=== PATIENT | female | born 1980 | race American Indian/Alaskan Native ===

== ENCOUNTER 2016-10-27 16:02 | Outpatient (CLI) | payer MEDICAID ==
--- NOTE | 2016-10-29 10:29 | Magnetic Resonance Report ---
MRI LUMBAR SPINE WITHOUT CONTRAST HISTORY: Low back pain. TECHNIQUE: axial T1, T2. sagittal T1,T2, STIR. COMPARISON: none. FINDINGS: The conus terminates at T12. No signal abnormality or mass. The cauda equina is within normal limits. No central canal stenosis. Normal height and alignment of the lumbar vertebra. The facet joints are in appropriate relationship. Normal bone marrow signal. No acute fracture or suspicious bone lesion. The paraspinal soft tissues are unremarkable. Mild disc narrowing and desiccation and facet arthropathy are noted at L4-5 and L5-S1. L1-2: No abnormality. L2-3: No abnormality. L3-4: No abnormality. L4-5: A focal midline annular tear and small disc protrusion are identified which efface the anterior thecal sac. No mass effect on nerve roots. No large herniation. Bilateral neural foraminal narrowing is estimated at 25%. Mild facet arthropathy and hypertrophy of the ligamentum flavum are noted.. L5-S1: A broad based midline to left paracentral annular tear is identified with small disc protrusion which effaces the anterior thecal sac. No mass effect on nerve roots or significant neural foraminal narrowing. Mild facet arthropathy is noted. IMPRESSION: Mild degenerative disc disease and facet arthropathy at L4-5 and L5-S1. Midline and midline to left paracentral annular tears with associated small disc protrusions are identified at these levels. Please see above. No large herniation, high-grade central canal stenosis or high-grade neural foraminal narrowing is appreciated.
== END 2016-10-27 16:03 | disposition home or self-care (01) ==
LOC: MRI 16:02
DX: M54.17 Radiculopathy, lumbosacral region (principal); M47.27 Other spondylosis with radiculopathy, lumbosacral region; M51.36 Other intervertebral disc degeneration, lumbar region; M51.17 Intervertebral disc disorders with radiculopathy, lumbosacral region; M12.88 Other specific arthropathies, not elsewhere classified, other specified site; M24.28 Disorder of ligament, vertebrae
CPT/HCPCS: 72148

== ENCOUNTER 2019-01-26 04:18 | Emergency (ER) | payer MEDICAID ==
[2019-01-26] MEDS ORDERED: NACL 0.9% 1000 ML 1,000 ML IV ONE ×2 (04:29→07:18)
[2019-01-26 05:43] LABS: Alanine Aminotransferase 8 units/L (7-56); Albumin 4.1 g/dL (3.9-5); BUN/Creatinine Ratio 10; Blood Urea Nitrogen 9 mg/dL (7-17); Calcium 8.8 mg/dL (8.4-10.2); Hemolysis Index 7
[2019-01-26 06:01] LABS: Basophils # (Auto) 0.1 K/mm3 (0.0-0.1); Basophils % (Auto) 0.5 % (0.0-1.8); Eosinophils % (Auto) 0.4 % (0.0-4.3); Hematocrit 42.8 % (30.3-42.9); Hemoglobin 14.3 gm/dl (10.1-14.3); Lymphocytes # (Auto) 4.1 K/mm3 (1.2-5.4); Lymphocytes % (Auto) 37.4 % (13.4-35.0); Mean Corpuscular HGB Conc 33 % (30-34); Mean Corpuscular Volume 96 fl (79-97); Monocytes # (Auto) 0.7 K/mm3 (0.0-0.8); Monocytes % (Auto) 6.7 % (0.0-7.3); Platelet Count 296 K/mm3 (140-440); Red Blood Count 4.48 M/mm3 (3.65-5.03); Red Cell Distribution Width 14.1 % (13.2-15.2)
[2019-01-26] MEDS ORDERED: MORPHINE IV ONE (07:18)
[2019-01-26] MEDS ORDERED: ZOFRAN IV ONE (07:18)
--- NOTE | 2019-01-26 07:43 | Emergency Department Report ---
ED Abdominal Pain HPI - General Chief Complaint: Abdominal Pain Stated Complaint: RT SIDE BREAST ABD PAIN Time Seen by Provider: 01/26/19 07:18 Source: patient Mode of arrival: Ambulatory Limitations: No Limitations - History of Present Illness Initial Comments: This is a 38-year-old female nontoxic, well nourished in appearance, no acute signs of distress presents to the ED with c/o of intermittent nausea and vomiting and right upper abdominal 1 month. Patient stated that pain is under right breast with radiation to right flank area. Patient describes vomiting as food content and yellow gastric acid. Patient describes abdominal pain as cramp ing and aching with level of 3/10. Patient denies chest pain, short of breath, fever, chills, headache, stiff neck, numbness or tingling. Patient denies any diarrhea or constipation. Patient denies any recent travels. MD Complaint: abdominal pain -: month(s) (1) Location: RUQ Radiation: R flank Migration to: no migration Severity: mild Severity scale (0 -10): 3 Quality: cramping, aching Consistency: intermittent Improves With: nothing Worsens With: nothing Associated Symptoms: nausea, vomiting. denies: diarrhea, fever, chills, constipation, dysuria, hematemesis, hematochezia, melena, hematuria, anorexia, syncope - Related Data Home Medications Medication Instructions Recorded Confirmed Last Taken Dicyclomine [Bentyl] 10 mg PO PRN PRN 04/07/16 04/10/16 04/08/16 08:00 HYDROcodone/ACETAMINOPHEN [[place] 09/04/16 Unknown 7.5-325 mg TAB] Previous Rx's Medication Instructions Recorded Last Taken Type Promethazine /Codeine 5 ml PO Q6H PRN #50 ml 12/04/14 04/09/16 12:00 Rx [Phenergan/Codeine 6.25-10 mg/5 ml] Meloxicam [Mobic] 7.5 mg PO QDAY #7 tablet 09/04/16 Unknown Rx Acetaminophen/Codeine [Tylenol 1 tab PO Q6H PRN #12 tab 01/26/19 Unknown Rx /Codeine # 3 tab] Nitrofurantoin [place]/M-Cryst 100 mg PO Q12HR #14 capsule 01/26/19 Unknown Rx [Macrobid CAP] Ondansetron [Zofran Odt] 4 mg PO Q8HR PRN #20 tab.rapdis 01/26/19 Unknown Rx Allergies Allergy/AdvReac Type Severity Reaction Status Date / Time sulfamethoxazole Allergy Severe Hives Verified 04/03/16 08:54 [From Bactrim] trimethoprim [From Bactrim] Allergy Severe Hives Verified 04/03/16 08:54 iodine Allergy Hives Verified 09/04/16 09:31 tramadol AdvReac Severe Headache Verified 04/07/16 09:57 aspirin AdvReac Unknown Verified 01/26/19 04:24 contrast Allergy Severe Rash Uncoded 04/03/16 08:54 CLAMary CHOWDER AdvReac Severe Swelling Uncoded 04/03/16 08:54 ED Review of Systems ROS: Stated complaint: RT SIDE BREAST ABD PAIN Other details as noted in HPI Constitutional: denies: chills, fever Eyes: denies: eye pain, eye discharge, vision change ENT: denies: ear pain, throat pain Respiratory: denies: cough, shortness of breath, wheezing Cardiovascular: denies: chest pain, palpitations Endocrine: no symptoms reported Gastrointestinal: abdominal pain, nausea, vomiting. denies: diarrhea Genitourinary: denies: urgency, dysuria, discharge Musculoskeletal: denies: back pain, joint swelling, arthralgia Skin: denies: rash, lesions Neurological: denies: headache, weakness, paresthesias Psychiatric: denies: anxiety, depression Hematological/Lymphatic: denies: easy bleeding, easy bruising ED Past Medical Hx - Past Medical History Previous Medical History?: Yes Hx Hypertension: Yes (notpresently on meds) Hx Diabetes: Yes (gestational) Hx GERD: Yes Hx Psychiatric Treatment: Yes (depression, ANXIETY, SI/SA) Additional medical history: Peripheral neuropathy. hx suicidal attempts/OD. pt states hx MS-no PMD or neurologist. - Surgical History Additional Surgical History: tonsillectomy. partial hysterectomy. x 3 - Social History Smoking Status: Current Every Day Smoker Substance Use Type: None - Medications Home Medications: Home Medications Medication Instructions Recorded Confirmed Last Taken Type Promethazine /Codeine 5 ml PO Q6H PRN #50 ml 12/04/14 04/10/16 04/09/16 12:00 Rx [Phenergan/Codeine 6.25-10 mg/5 ml] Dicyclomine [Bentyl] 10 mg PO PRN PRN 04/07/16 04/10/16 04/08/16 08:00 History HYDROcodone/ACETAMINOPHEN [[place] 09/04/16 Unknown History 7.5-325 mg TAB] Meloxicam [Mobic] 7.5 mg PO QDAY #7 tablet 09/04/16 Unknown Rx Acetaminophen/Codeine [Tylenol 1 tab PO Q6H PRN #12 tab 01/26/19 Unknown Rx /Codeine # 3 tab] Nitrofurantoin [place]/M-Cryst 100 mg PO Q12HR #14 capsule 01/26/19 Unknown Rx [Macrobid CAP] Ondansetron [Zofran Odt] 4 mg PO Q8HR PRN #20 tab.rapdis 01/26/19 Unknown Rx ED Physical Exam - General Limitations: No Limitations General appearance: alert, in no apparent distress - Head Head exam: Present: atraumatic, normocephalic - Eye Eye exam: Present: normal appearance - Neck Neck exam: Present: normal inspection, full ROM. Absent: tenderness, meningismus, lymphadenopathy - Respiratory Respiratory exam: Present: normal lung sounds bilaterally. Absent: respiratory distress, wheezes, rales, rhonchi, stridor, chest wall tenderness, accessory muscle use, decreased breath sounds, prolonged expiratory - Cardiovascular Cardiovascular Exam: Present: regular rate, normal rhythm, normal heart sounds. Absent: irregular rhythm, systolic murmur, diastolic murmur, rubs, gallop - GI/Abdominal GI/Abdominal exam: Present: soft, tenderness (RUQ), normal bowel sounds. Absent: distended, guarding, rebound, rigid, diminished bowel sounds - Expanded GI/Abdominal Exam Expanded GI/Abdominal exam: Absent: psoas sign, Danielle's sign, Rovsing's sign, tenderness at Mcburney's Point, ascites - Extremities Exam Extremities exam: Present: normal inspection, full ROM, normal capillary refill - Back Exam Back exam: Present: normal inspection, full ROM. Absent: tenderness, CVA tenderness (R), CVA tenderness (L), muscle spasm, paraspinal tenderness, vertebral tenderness, rash noted - Neurological Exam Neurological exam: Present: alert, oriented X3, normal gait - Psychiatric Psychiatric exam: Present: normal affect, normal mood - Skin Skin exam: Present: warm, dry, intact, normal color. Absent: rash ED Course Vital Signs 01/26/19 01/26/19 01/26/19 04:27 08:25 08:55 Temperature 98.6 F Pulse Rate 97 H Respiratory 18 18 18 Rate Blood Pressure 154/108 O2 Sat by Pulse 100 Oximetry - Reevaluation(s) Reevaluation #1: 01/26/19 07:45 Patient is speaking in full sentences with no signs of distress noted. ED Medical Decision Making - Lab Data Result diagrams: 01/26/19 04:32 01/26/19 04:32 - Medical Decision Making This is a 35-year-old female that presents with abdominal pain and UTI. Patient is stable and was examined by me. There is slight abdominal tenderness. Negative signs of symptoms of appendicitis. Labs obtained. UA obtained. CT of abdomen obtained and dictated by the radiologist. Patient is notified of the report with no questions noted by the patient. Vital signs are stable prior to discharge. Patient received medical treatment in the ED which patient stated symptoms has resolved and subsided. Was instructed note to operate any machinery due to possible drowsiness and stated someone will drive the patient home. A by mouth challenge has been obtained and patient tolerated well with no nausea vomiting. Patient was notified of strict precatuions of appendictis symptoms and to return to the ED if symptoms occurs as soon as possible. Patient was also instructed to Follow-up with a primary care doctor in 3-5 days or if symptoms worsen and continue return to emergency room as soon as possible. At time of discharge, the patient does not seem toxic or ill in appearance. No acute signs of distress noted. Patient agrees to discharge treatment plan of care. No further questions noted by the patient. Critical care attestation.: If time is entered above; I have spent that time in minutes in the direct care of this critically ill patient, excluding procedure time. ED Disposition Clinical Impression: UTI (urinary tract infection) Qualifiers: Urinary tract infection type: acute cystitis Hematuria presence: without hematuria Qualified Code(s): N30.00 - Acute cystitis without hematuria Abdominal pain Qualifiers: Abdominal location: right upper quadrant Qualified Code(s): R10.11 - Right upper quadrant pain Disposition: -01 TO HOME OR SELFCARE Is pt being admited?: No Does the pt Need Aspirin: No Condition: Stable Instructions: Abdominal Pain (ED), Urinary Tract Infection in Women (ED), Acetaminophen/Codeine (By mouth) Additional Instructions: Follow-up with a primary care doctor in 3-5 days or if symptoms worsen and continue return to emergency room as soon as possible. Prescriptions: Nitrofurantoin [place]/M-Cryst [Macrobid CAP] 100 mg PO Q12HR #14 capsule Acetaminophen/Codeine [Tylenol /Codeine # 3 tab] 1 tab PO Q6H PRN #12 tab PRN Reason: Pain , Severe (7-10) Ondansetron [Zofran Odt] 4 mg PO Q8HR PRN #20 tab.rapdis PRN Reason: Nausea Referrals: TANA ALAN MD [Primary Care Provider] - 3-5 Days PRIMARY CARE, [Referring] - 3-5 Days SHERITA ZHENG MD [Staff Physician] - 3-5 Days [facility] [Outside] - 3-5 Days [facility] [Outside] - 3-5 Days Forms: Work/School Release Form(ED)
[2019-01-26 08:12] LABS: Bacteria,Urine 4+ /HPF (Negative); Bilirubin,Urine NEG (Negative); Blood,Urine NEG (Negative); Color,Urine Amber (Yellow); Mucus,Urine 3+ /HPF; Protein,Urine <15 mg/dL mg/dL (Negative)
[2019-01-26 08:55] LABS: HCG Qualitative,Urine Negative (Negative)
--- NOTE | 2019-01-26 09:54 | Cat Scan Report ---
PROCEDURE: CT ABDOMEN PELVIS W CON TECHNIQUE: Computerized axial tomography of the abdomen and pelvis was performed after the IV injecti on of iodinated nonionic contrast. Coronal and sagittal reconstructed imaging provided. CT DOSE LENGTH PRODUCT: 3358.2 mGy-cm. HISTORY: abd pain COMPARISONS: None currently available. FINDINGS: Abdomen: Lung bases and images of the heart are grossly unremarkable. Liver, gallbladder, stomach, spleen, pancreas, adrenals, and kidneys are unremarkable. No aneurysm. No dissection. No significant atherosclerotic disease. IVC is unremarkable. There is no periaortic or retroperitoneal adenopathy or mass. Qnkr-wt-ywolqacl stool. No wall thickening or inflammatory changes. Terminal ileum is unremarkable. Appendix is normal. Small bowel loops are unremarkable. No obstructive pattern. No air-fluid levels. No free air. No free fluid. Mesentery is unremarkable. Pelvis: Uterus: Limited images are grossly unremarkable. Bilateral tubal ligation clips. Bladder: Unremarkable. There is no pelvic mass or adenopathy. Inguinal regions are unremarkable. Bones: No suspicious osseous lesions on this limited examination of the skeleton. Metastatic disease better evaluated with bone scan. IMPRESSION: * No acute findings. This document is electronically signed by Louis Vazquez MD., January 26 2019 09:52:47 AM ET
[2019-01-26 10:10] VITALS: BP 123/76
== END 2019-01-26 10:10 | disposition home or self-care (01) ==
LOC: ED 04:18
DX: N30.00 Acute cystitis without hematuria (principal); I10 Essential (primary) hypertension; K21.9 Gastro-esophageal reflux disease without esophagitis; E11.40 Type 2 diabetes mellitus with diabetic neuropathy, unspecified; F17.200 Nicotine dependence, unspecified, uncomplicated; Z79.4 Long term (current) use of insulin; Z90.710 Acquired absence of both cervix and uterus; Z88.2 Allergy status to sulfonamides; Z88.8 Allergy status to other drugs, medicaments and biological substances; Z88.6 Allergy status to analgesic agent; Z91.041 Radiographic dye allergy status
CPT/HCPCS: 36415; 74177; 80053; 81001; 81025; 83690; 85025; 96361; 96374; 96375; 99284; J2270; J2405; J7030; Q9967

== ENCOUNTER 2019-02-10 11:04 | Emergency (ER) | payer MEDICAID ==
[2019-02-10 11:59] LABS: Basophils # (Auto) 0.1 K/mm3 (0.0-0.1); Basophils % (Auto) 0.7 % (0.0-1.8); Eosinophils # (Auto) 0.1 K/mm3 (0.0-0.4); Eosinophils % (Auto) 0.6 % (0.0-4.3); Hematocrit 39.8 % (30.3-42.9); Hemoglobin 13.2 gm/dl (10.1-14.3); Lymphocytes # (Auto) 2.2 K/mm3 (1.2-5.4); Lymphocytes % (Auto) 20.2 % (13.4-35.0); Mean Corpuscular HGB Conc 33 % (30-34); Mean Corpuscular Volume 96 fl (79-97); Monocytes % (Auto) 8.9 % (0.0-7.3); Platelet Count 204 K/mm3 (140-440); Red Blood Count 4.15 M/mm3 (3.65-5.03); Red Cell Distribution Width 14.4 % (13.2-15.2)
[2019-02-10] MEDS ORDERED: FIORICET PO ONE (12:01)
[2019-02-10] MEDS ORDERED: REGLAN IV ONE (12:01)
[2019-02-10] MEDS ORDERED: NACL 0.9% 1000 ML 1,000 ML IV ONE (12:01)
[2019-02-10] MEDS ORDERED: ANTIVERT PO ONE (12:02)
[2019-02-10] MEDS ORDERED: BENADRYL IV ONE (12:02)
[2019-02-10 12:19] LABS: BUN/Creatinine Ratio 10; Blood Urea Nitrogen 6 mg/dL (7-17); Calcium 8.8 mg/dL (8.4-10.2); Hemolysis Index 8
--- NOTE | 2019-02-10 12:57 | Emergency Department Report ---
ED General Adult HPI - General Chief complaint: Weakness Stated complaint: WEAKNESS Time Seen by Provider: 02/10/19 11:43 Source: patient, EMS Mode of arrival: Stretcher Limitations: No Limitations - History of Present Illness Initial comments: Patient presents to the emergency department with a chief complaint of generalized weakness and dizziness for the last 2 weeks. Patient states that when she moves her head she becomes dizzy. Patient denies any chest pain or shortness of breath. Patient also complains of a diffuse headache for the last 2 weeks that she describes as throbbing in nature and not the worse headache of her life -: Gradual Severity scale (0 -10): 4 Consistency: constant Improves with: none Worsens with: none Associated Symptoms: headaches Treatments Prior to Arrival: none - Related Data Home Medications Medication Instructions Recorded Confirmed Last Taken Dicyclomine [Bentyl] 10 mg PO PRN PRN 04/07/16 04/10/16 04/08/16 08:00 HYDROcodone/ACETAMINOPHEN [[place] 09/04/16 Unknown 7.5-325 mg TAB] Previous Rx's Medication Instructions Recorded Last Taken Type Promethazine /Codeine 5 ml PO Q6H PRN #50 ml 12/04/14 04/09/16 12:00 Rx [Phenergan/Codeine 6.25-10 mg/5 ml] Meloxicam [Mobic] 7.5 mg PO QDAY #7 tablet 09/04/16 Unknown Rx Acetaminophen/Codeine [Tylenol 1 tab PO Q6H PRN #12 tab 01/26/19 Unknown Rx /Codeine # 3 tab] Nitrofurantoin [place]/M-Cryst 100 mg PO Q12HR #14 capsule 01/26/19 Unknown Rx [Macrobid CAP] Ondansetron [Zofran Odt] 4 mg PO Q8HR PRN #20 tab.rapdis 01/26/19 Unknown Rx Butalb/Acetamin/Caff 50-325-40 1 tab PO Q6HR PRN #24 tab 02/10/19 Unknown Rx [Fioricet] Meclizine [Antivert] 25 mg PO TID PRN #30 tablet 02/10/19 Unknown Rx Allergies Allergy/AdvReac Type Severity Reaction Status Date / Time sulfamethoxazole Allergy Severe Hives Verified 04/03/16 08:54 [From Bactrim] trimethoprim [From Bactrim] Allergy Severe Hives Verified 04/03/16 08:54 iodine Allergy Hives Verified 09/04/16 09:31 tramadol AdvReac Severe Headache Verified 04/07/16 09:57 aspirin AdvReac Unknown Verified 01/26/19 04:24 contrast Allergy Severe Rash Uncoded 04/03/16 08:54 MKIAEL CHATMAN AdvReac Severe Swelling Uncoded 04/03/16 08:54 ED Review of Systems ROS: Stated complaint: WEAKNESS Other details as noted in HPI Comment: All other systems reviewed and negative Constitutional: denies: chills, fever Eyes: denies: eye pain, eye discharge, vision change ENT: denies: ear pain, throat pain Respiratory: denies: cough, shortness of breath, wheezing Cardiovascular: denies: chest pain, palpitations Endocrine: no symptoms reported Gastrointestinal: denies: abdominal pain, nausea, diarrhea Genitourinary: denies: urgency, dysuria, discharge Musculoskeletal: denies: back pain, joint swelling, arthralgia Skin: denies: rash, lesions Neurological: weakness, vertigo. denies: headache, paresthesias Psychiatric: denies: anxiety, depression Hematological/Lymphatic: denies: easy bleeding, easy bruising ED Past Medical Hx - Past Medical History Previous Medical History?: Yes Hx Hypertension: Yes (notpresently on meds) Hx Diabetes: Yes (gestational) Hx GERD: Yes Hx Psychiatric Treatment: Yes (depression, ANXIETY, SI/SA) Additional medical history: Peripheral neuropathy. hx suicidal attempts/OD. pt states hx MS-no PMD or neurologist. - Surgical History Additional Surgical History: tonsillectomy. partial hysterectomy. x 3 - Social History Smoking Status: Current Every Day Smoker Substance Use Type: None - Medications Home Medications: Home Medications Medication Instructions Recorded Confirmed Last Taken Type Promethazine /Codeine 5 ml PO Q6H PRN #50 ml 12/04/14 04/10/16 04/09/16 12:00 Rx [Phenergan/Codeine 6.25-10 mg/5 ml] Dicyclomine [Bentyl] 10 mg PO PRN PRN 04/07/16 04/10/16 04/08/16 08:00 History HYDROcodone/ACETAMINOPHEN [[place] 09/04/16 Unknown History 7.5-325 mg TAB] Meloxicam [Mobic] 7.5 mg PO QDAY #7 tablet 09/04/16 Unknown Rx Acetaminophen/Codeine [Tylenol 1 tab PO Q6H PRN #12 tab 01/26/19 Unknown Rx /Codeine # 3 tab] Nitrofurantoin [place]/M-Cryst 100 mg PO Q12HR #14 capsule 01/26/19 Unknown Rx [Macrobid CAP] Ondansetron [Zofran Odt] 4 mg PO Q8HR PRN #20 tab.rapdis 01/26/19 Unknown Rx Butalb/Acetamin/Caff 50-325-40 1 tab PO Q6HR PRN #24 tab 02/10/19 Unknown Rx [Fioricet] Meclizine [Antivert] 25 mg PO TID PRN #30 tablet 02/10/19 Unknown Rx ED Physical Exam - General Limitations: No Limitations General appearance: alert, in no apparent distress - Head Head exam: Present: atraumatic, normocephalic - Eye Eye exam: Present: normal appearance, PERRL, EOMI - ENT ENT exam: Present: mucous membranes dry - Neck Neck exam: Present: normal inspection - Respiratory Respiratory exam: Present: normal lung sounds bilaterally. Absent: respiratory distress, wheezes, rales - Cardiovascular Cardiovascular Exam: Present: regular rate, normal rhythm. Absent: systolic murmur, diastolic murmur, rubs, gallop - GI/Abdominal GI/Abdominal exam: Present: soft, normal bowel sounds. Absent: distended, tenderness - Extremities Exam Extremities exam: Present: normal inspection - Back Exam Back exam: Present: normal inspection - Neurological Exam Neurological exam: Present: alert, oriented X3, CN II-XII intact, other (able to re-create symptoms are rapid eye and head movement). Absent: motor sensory deficit - Psychiatric Psychiatric exam: Present: normal affect, normal mood - Skin Skin exam: Present: warm, dry, intact, normal color. Absent: rash ED Course Vital Signs 02/10/19 02/10/19 11:12 13:20 Temperature 98.3 F Pulse Rate 113 H 98 H Respiratory 18 16 Rate Blood Pressure 136/90 Blood Pressure 117/63 [Left] O2 Sat by Pulse 98 98 Oximetry ED Medical Decision Making - Lab Data Result diagrams: 02/10/19 11:44 02/10/19 11:44 Lab Results 02/10/19 02/10/19 02/10/19 Range/Units 11:44 11:44 11:44 WBC 10.7 (4.5-11.0) K/mm3 RBC 4.15 (3.65-5.03) M/mm3 Hgb 13.2 (10.1-14.3) gm/dl Hct 39.8 (30.3-42.9) % MCV 96 (79-97) fl MCH 32 (28-32) pg MCHC 33 (30-34) % RDW 14.4 (13.2-15.2) % Plt Count 204 (140-440) K/mm3 Lymph % (Auto) 20.2 (13.4-35.0) % [place] % (Auto) 8.9 H (0.0-7.3) % Eos % (Auto) 0.6 (0.0-4.3) % Baso % (Auto) 0.7 (0.0-1.8) % Lymph # 2.2 (1.2-5.4) K/mm3 [place] # 1.0 H (0.0-0.8) K/mm3 Eos # 0.1 (0.0-0.4) K/mm3 Baso # 0.1 (0.0-0.1) K/mm3 Seg Neutrophils % 69.6 (40.0-70.0) % Seg Neutrophils # 7.4 (1.8-7.7) K/mm3 Sodium 139 (137-145) mmol/L Potassium 3.5 L (3.6-5.0) mmol/L Chloride 103.5 (98-107) mmol/L Carbon Dioxide 24 (22-30) mmol/L Anion Gap 15 mmol/L BUN 6 L (7-17) mg/dL Creatinine 0.6 L (0.7-1.2) mg/dL Estimated GFR > 60 ml/min BUN/Creatinine Ratio 10 % Glucose 123 H (65-100) mg/dL Calcium 8.8 (8.4-10.2) mg/dL Total Bilirubin (0.1-1.2) mg/dL Direct Bilirubin (0-0.2) mg/dL Indirect Bilirubin mg/dL AST (5-40) units/L ALT (7-56) units/L Alkaline Phosphatase (35-129) units/L Total Protein (6.3-8.2) g/dL Albumin (3.9-5) g/dL Albumin/Globulin Ratio % HCG, Qual Negative (Negative) Urine Color (Yellow) Urine Turbidity (Clear) Urine pH (5.0-7.0) Ur Specific [place] (1.003-1.030) Urine Protein (Negative) mg/dL Urine Glucose (UA) (Negative) mg/dL Urine Ketones (Negative) mg/dL Urine Blood (Negative) Urine Nitrite (Negative) Urine Bilirubin (Negative) Urine Urobilinogen (<2.0) mg/dL Ur Leukocyte Esterase (Negative) Urine WBC (Auto) (0.0-6.0) /HPF Urine RBC (Auto) (0.0-6.0) /HPF U Epithel Cells (Auto) (0-13.0) /HPF Urine Bacteria (Auto) (Negative) /HPF 02/10/19 02/10/19 Range/Units 11:44 12:17 WBC (4.5-11.0) K/mm3 RBC (3.65-5.03) M/mm3 Hgb (10.1-14.3) gm/dl Hct (30.3-42.9) % MCV (79-97) fl MCH (28-32) pg MCHC (30-34) % RDW (13.2-15.2) % Plt Count (140-440) K/mm3 Lymph % (Auto) (13.4-35.0) % [place] % (Auto) (0.0-7.3) % Eos % (Auto) (0.0-4.3) % Baso % (Auto) (0.0-1.8) % Lymph # (1.2-5.4) K/mm3 [place] # (0.0-0.8) K/mm3 Eos # (0.0-0.4) K/mm3 Baso # (0.0-0.1) K/mm3 Seg Neutrophils % (40.0-70.0) % Seg Neutrophils # (1.8-7.7) K/mm3 Sodium (137-145) mmol/L Potassium (3.6-5.0) mmol/L Chloride (98-107) mmol/L Carbon Dioxide (22-30) mmol/L Anion Gap mmol/L BUN (7-17) mg/dL Creatinine (0.7-1.2) mg/dL Estimated GFR ml/min BUN/Creatinine Ratio % Glucose (65-100) mg/dL Calcium (8.4-10.2) mg/dL Total Bilirubin 0.20 (0.1-1.2) mg/dL Direct Bilirubin < 0.2 (0-0.2) mg/dL Indirect Bilirubin 0.0 mg/dL AST 10 (5-40) units/L ALT 12 (7-56) units/L Alkaline Phosphatase 80 (35-129) units/L Total Protein 6.6 (6.3-8.2) g/dL Albumin 3.7 L (3.9-5) g/dL Albumin/Globulin Ratio 1.3 % HCG, Qual (Negative) Urine Color Yellow (Yellow) Urine Turbidity Cloudy (Clear) Urine pH 7.0 (5.0-7.0) Ur Specific [place] 1.004 (1.003-1.030) Urine Protein <15 mg/dl (Negative) mg/dL Urine Glucose (UA) Neg (Negative) mg/dL Urine Ketones Neg (Negative) mg/dL Urine Blood Neg (Negative) Urine Nitrite Neg (Negative) Urine Bilirubin Neg (Negative) Urine Urobilinogen < 2.0 (<2.0) mg/dL Ur Leukocyte Esterase Tr (Negative) Urine WBC (Auto) 4.0 (0.0-6.0) /HPF Urine RBC (Auto) 2.0 (0.0-6.0) /HPF U Epithel Cells (Auto) 41.0 H (0-13.0) /HPF Urine Bacteria (Auto) 1+ (Negative) /HPF - Radiology Data Radiology results: report reviewed - Medical Decision Making Patient had improvement of her symptoms with medications Critical care attestation.: If time is entered above; I have spent that time in minutes in the direct care of this critically ill patient, excluding procedure time. ED Disposition Clinical Impression: Vertigo, Headache Disposition: - TO HOME OR SELFCARE Is pt being admited?: No Does the pt Need Aspirin: No Condition: Stable Instructions: Vertigo (ED), Acute Headache (ED) Additional Instructions: return if worse Referrals: TANA ALAN MD [Primary Care Provider] - 3-5 Days [facility] [Provider Group] - 3-5 Days [facility] [Provider Group] - 3-5 Days ENOC RODRIGUEZ MD [Staff Physician] - 3-5 Days Time of Disposition: 15:21
[2019-02-10 13:10] LABS: Bacteria,Urine 1+ /HPF (Negative); Bilirubin,Urine NEG (Negative); Blood,Urine NEG (Negative); Color,Urine Yellow (Yellow); Protein,Urine <15 mg/dL mg/dL (Negative); Urobilinogen,Urine < 2.0 mg/dL (<2.0)
[2019-02-10 14:00] LABS: Alanine Aminotransferase 12 units/L (7-56); Albumin 3.7 g/dL (3.9-5)
[2019-02-10 14:01] LABS: Bilirubin,Direct < 0.2 mg/dL (0-0.2)
--- NOTE | 2019-02-10 14:47 | Cat Scan Report ---
CT HEAD WITHOUT CONTRAST: HISTORY: Dizziness. TECHNIQUE: Sequential 2.5mm CT images. COMPARISON: none. FINDINGS: Cerebral Parenchyma: Within normal limits. Cerebellum: Within normal limits. Brainstem: Within normal limits. Ventricles: Normal. Sella: Normal. Extra-axial spaces: Normal. Basal Cisterns: Normal. Intracranial Hemorrhage: None. Midline Shift: None. Calvarium: Normal. Sinuses: Normal. Mastoid Air Cells: Normal. Visualized Orbits: Normal. IMPRESSION: Cranial CT scan within normal limits.
--- NOTE | 2019-02-10 15:30 | XRay Report ---
AP CHEST: HISTORY: Weakness AP view of the chest demonstrates a normal mediastinal and cardiac contour with clear lungs and normal bony and soft tissue structures. IMPRESSION: Unremarkable AP chest.
[2019-02-10 15:33] VITALS: BP 127/87
== END 2019-02-10 15:34 | disposition home or self-care (01) ==
LOC: ED 11:04
DX: R42 Dizziness and giddiness (principal); R51 Headache; I10 Essential (primary) hypertension; E11.9 Type 2 diabetes mellitus without complications; K21.9 Gastro-esophageal reflux disease without esophagitis; F17.200 Nicotine dependence, unspecified, uncomplicated; E11.40 Type 2 diabetes mellitus with diabetic neuropathy, unspecified; Z90.710 Acquired absence of both cervix and uterus; Z88.6 Allergy status to analgesic agent; Z88.1 Allergy status to other antibiotic agents; Z88.8 Allergy status to other drugs, medicaments and biological substances
CPT/HCPCS: 36415; 70450; 71045; 80048; 80076; 81001; 84703; 85025; 93005; 93010; 96361; 96374; 96375; 99285; J1200; J2765; J7030

== ENCOUNTER 2019-03-20 15:07 | Emergency (ER) | payer MEDICAID ==
--- NOTE | 2019-03-20 15:22 | Event Note ---
ED Screening Note ED Screening Note: pt states that she fell down the steps on sunday states she fell inside the house states she fell down 4 steps states she tripped over a dog is having left sided thigh pain, states it feels like a "charley horse" This initial assessment/diagnostic orders/clinical plan/treatment(s) is/are subject to change based on patients health status, clinical progression and re- assessment by fellow clinical providers in the ED. Further treatment and workup at subsequent clinical providers discretion. Patient/guardian urged not to elope from the ED as their condition may be serious if not clinically assessed and managed. ACC for eval
[2019-03-20 15:23] VITALS: BP 135/87
[2019-03-20] MEDS ORDERED: TYLENOL PO ONE (16:44)
--- NOTE | 2019-03-20 16:47 | Emergency Department Report ---
ED Fall HPI - General Chief Complaint: Fall Stated Complaint: KNEE AND BACK PAIN Time Seen by Provider: 03/20/19 15:20 Source: patient Mode of arrival: Ambulatory - History of Present Illness Initial Comments: pt states that she fell down the steps on sunday states she fell inside the house states she fell down 4 steps states she tripped over a dog is having left sided thigh pain, states it feels like a "charley horse" Review of patient's chart she's had a history of chronic knee pain. Patient is followed by Dr.Ahmad Monae last seen 3 weeks ago. Patient has taken nothing for pain. 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) Place Fall Occurred: home Loss of Consciousness: none Prolonged Down Time?: no Symptoms Prior to Fall: none Location - Extremities: Left: Knee (F Menezes to light), Right: Knee - Related Data Home Medications Medication Instructions Recorded Confirmed Last Taken Dicyclomine [Bentyl] 10 mg PO PRN PRN 04/07/16 04/10/16 04/08/16 08:00 HYDROcodone/ACETAMINOPHEN [[place] 09/04/16 Unknown 7.5-325 mg TAB] Previous Rx's Medication Instructions Recorded Last Taken Type Promethazine /Codeine 5 ml PO Q6H PRN #50 ml 12/04/14 04/09/16 12:00 Rx [Phenergan/Codeine 6.25-10 mg/5 ml] Meloxicam [Mobic] 7.5 mg PO QDAY #7 tablet 09/04/16 Unknown Rx Acetaminophen/Codeine [Tylenol 1 tab PO Q6H PRN #12 tab 01/26/19 Unknown Rx /Codeine # 3 tab] Nitrofurantoin [place]/M-Cryst 100 mg PO Q12HR #14 capsule 01/26/19 Unknown Rx [Macrobid CAP] Ondansetron [Zofran Odt] 4 mg PO Q8HR PRN #20 tab.rapdis 01/26/19 Unknown Rx Butalb/Acetamin/Caff 50-325-40 1 tab PO Q6HR PRN #24 tab 02/10/19 Unknown Rx [Fioricet] Meclizine [Antivert] 25 mg PO TID PRN #30 tablet 02/10/19 Unknown Rx Acetaminophen [Acetaminophen TAB] 1,000 mg PO Q6HR PRN #24 tablet 03/20/19 Unknown Rx Allergies Allergy/AdvReac Type Severity Reaction Status Date / Time sulfamethoxazole Allergy Severe Hives Verified 04/03/16 08:54 [From Bactrim] trimethoprim [From Bactrim] Allergy Severe Hives Verified 04/03/16 08:54 iodine Allergy Hives Verified 09/04/16 09:31 tramadol AdvReac Severe Headache Verified 04/07/16 09:57 aspirin AdvReac Unknown Verified 01/26/19 04:24 contrast Allergy Severe Rash Uncoded 04/03/16 08:54 CLAM CHOWDER AdvReac Severe Swelling Uncoded 04/03/16 08:54 ED Review of Systems ROS: Stated complaint: KNEE AND BACK PAIN Other details as noted in HPI ED Past Medical Hx - Past Medical History Hx Hypertension: Yes (notpresently on meds) Hx Diabetes: Yes (gestational) Hx GERD: Yes Hx Psychiatric Treatment: Yes (depression, ANXIETY, SI/SA) Additional medical history: Peripheral neuropathy. hx suicidal attempts/OD. pt states hx MS-no PMD or neurologist. - Surgical History Additional Surgical History: tonsillectomy. partial hysterectomy. x 3 - Social History Smoking Status: Never Smoker Substance Use Type: None - Medications Home Medications: Home Medications Medication Instructions Recorded Confirmed Last Taken Type Promethazine /Codeine 5 ml PO Q6H PRN #50 ml 12/04/14 04/10/16 04/09/16 12:00 Rx [Phenergan/Codeine 6.25-10 mg/5 ml] Dicyclomine [Bentyl] 10 mg PO PRN PRN 04/07/16 04/10/16 04/08/16 08:00 History HYDROcodone/ACETAMINOPHEN [[place] 09/04/16 Unknown History 7.5-325 mg TAB] Meloxicam [Mobic] 7.5 mg PO QDAY #7 tablet 09/04/16 Unknown Rx Acetaminophen/Codeine [Tylenol 1 tab PO Q6H PRN #12 tab 01/26/19 Unknown Rx /Codeine # 3 tab] Nitrofurantoin [place]/M-Cryst 100 mg PO Q12HR #14 capsule 01/26/19 Unknown Rx [Macrobid CAP] Ondansetron [Zofran Odt] 4 mg PO Q8HR PRN #20 tab.rapdis 01/26/19 Unknown Rx Butalb/Acetamin/Caff 50-325-40 1 tab PO Q6HR PRN #24 tab 02/10/19 Unknown Rx [Fioricet] Meclizine [Antivert] 25 mg PO TID PRN #30 tablet 02/10/19 Unknown Rx Acetaminophen [Acetaminophen TAB] 1,000 mg PO Q6HR PRN #24 tablet 03/20/19 Unknown Rx ED Physical Exam - General Limitations: No Limitations General appearance: alert, in no apparent distress, obese - Head Head exam: Present: atraumatic, normocephalic - Eye Eye exam: Present: normal appearance - ENT ENT exam: Present: mucous membranes moist - Neck Neck exam: Present: normal inspection, full ROM - Respiratory Respiratory exam: Present: normal lung sounds bilaterally - Cardiovascular Cardiovascular Exam: Present: regular rate - GI/Abdominal GI/Abdominal exam: Present: soft (vital), normal bowel sounds - Expanded Lower Extremity Exam Left Hip exam: Present: full ROM, tenderness. Absent: swelling, abrasion Upper Leg exam: Present: full ROM. Absent: tenderness, swelling Knee exam: Present: full ROM. Absent: swelling, abrasion Lower Leg exam: Present: normal inspection, full ROM. Absent: tenderness, swelling Neuro vascular tendon exam: Present: no vascular compromise - Back Exam Back exam: Present: paraspinal tenderness - Neurological Exam Neurological exam: Present: alert, oriented X3 - Psychiatric Psychiatric exam: Present: normal affect, normal mood - Skin Skin exam: Present: warm, dry, intact, normal color. Absent: rash ED Course Vital Signs 03/20/19 15:21 Temperature 97.9 F Pulse Rate 87 Respiratory 18 Rate Blood Pressure 135/87 O2 Sat by Pulse 97 Oximetry ED Medical Decision Making - Medical Decision Making 38-year-old -[place] female comes in for a fall that happened 4 days ago. Patient complains of bilateral knee pain. Patient has taken nothing for p ain. Patient is ambulatory. Discussed the patient that she needs to take some Tylenol for pain management. Critical care attestation.: If time is entered above; I have spent that time in minutes in the direct care of this critically ill patient, excluding procedure time. ED Disposition Clinical Impression: Morbid obesity with BMI of 40.0-44.9, adult Right knee sprain Qualifiers: Encounter type: initial encounter Left knee pain Qualifiers: Chronicity: chronic Qualified Code(s): M25.562 - Pain in left knee; G89.29 - Other chronic pain Disposition: - TO HOME OR SELFCARE Is pt being admited?: No Does the pt Need Aspirin: No Condition: Stable Additional Instructions: Please take pain medication as needed follow-up to primary care provider if his symptoms persist or gets worse. Prescriptions: Acetaminophen [Acetaminophen TAB] 1,000 mg PO Q6HR PRN #24 tablet PRN Reason: Pain , Severe (7-10) Referrals: GENA MONAE MD [Referring] - 3-5 Days AMY CASTILLO MD [Staff Physician] - 3-5 Days
== END 2019-03-20 17:11 | disposition home or self-care (01) ==
LOC: ED 15:07
DX: S83.91XA Sprain of unspecified site of right knee, initial encounter (principal); M25.562 Pain in left knee; G89.29 Other chronic pain; E66.01 Morbid (severe) obesity due to excess calories; Z68.41 Body mass index [BMI] 40.0-44.9, adult; I10 Essential (primary) hypertension; K21.9 Gastro-esophageal reflux disease without esophagitis; E11.40 Type 2 diabetes mellitus with diabetic neuropathy, unspecified; Z90.711 Acquired absence of uterus with remaining cervical stump; Z90.89 Acquired absence of other organs; Z88.2 Allergy status to sulfonamides; Z88.6 Allergy status to analgesic agent; Z91.041 Radiographic dye allergy status; W10.8XXA Fall (on) (from) other stairs and steps, initial encounter; Y93.89 Activity, other specified; Y92.098 Other place in other non-institutional residence as the place of occurrence of the external cause; Y99.8 Other external cause status
CPT/HCPCS: 99282

== ENCOUNTER 2019-04-05 03:45 | Emergency (ER) | payer MEDICAID ==
[2019-04-05] MEDS ORDERED: DECADRON IM ONE (05:54)
[2019-04-05] MEDS ORDERED: NORCO 5/325 PO ONE (05:54)
[2019-04-05] MEDS ORDERED: IBUPROFEN PO ONE (05:54)
[2019-04-05] MEDS ORDERED: FLEXERIL PO ONE (05:54)
--- NOTE | 2019-04-05 06:49 | XRay Report ---
PROCEDURE: XR SPINE CERVICAL 2-3V TECHNIQUE: AP, lateral, and open-mouth odontoid views were obtained of the cervical spine. HISTORY: Neck Pain COMPARISONS: None FINDINGS: There is mild to moderate narrowing of the C5-C6 disc with minimal endplate spurring. There is minima l narrowing the C6-C7 disc. The alignment appears normal. The prevertebral soft tissues and C1-C2 art iculation appear intact. IMPRESSION: Degenerative arthritic changes C5-C6 and C6-C7 levels.. This document is electronically signed by London Keith MD., April 05 2019 06:47:12 AM ET
--- NOTE | 2019-04-05 07:10 | Emergency Department Report ---
ED General Adult HPI - General Chief complaint: Extremity Injury, Upper Stated complaint: R HAND/ARM/SHOULDER/BACK PAIN Time Seen by Provider: 04/05/19 07:01 Source: patient Mode of arrival: Ambulatory Limitations: No Limitations - History of Present Illness Initial comments: pt is a 38 y/o aaf with hx of falls 3 weeks ago down 7 steps at home dx with l umbar strain , tx with ibuprofen, now with right lateral neck and shoulder pain that she states never got better since incident. pain is described as 4/10 aching burning tinglling radiating right thumb and index finger , rom intact there is no swelling no deformity , pt remains a/o x 3m ambulatory to baseline. Onset/Timin -: week(s) Location: neck Severity scale (0 -10): 7 Quality: burning, aching Consistency: constant Improves with: none Worsens with: medication, movement Associated Symptoms: denies: weakness Treatments Prior to Arrival: none - Related Data Home Medications Medication Instructions Recorded Confirmed Last Taken Dicyclomine [Bentyl] 10 mg PO PRN PRN 04/07/16 04/10/16 04/08/16 08:00 HYDROcodone/ACETAMINOPHEN [[place] 09/04/16 Unknown 7.5-325 mg TAB] Previous Rx's Medication Instructions Recorded Last Taken Type Promethazine /Codeine 5 ml PO Q6H PRN #50 ml 12/04/14 04/09/16 12:00 Rx [Phenergan/Codeine 6.25-10 mg/5 ml] Meloxicam [Mobic] 7.5 mg PO QDAY #7 tablet 09/04/16 Unknown Rx Acetaminophen/Codeine [Tylenol 1 tab PO Q6H PRN #12 tab 01/26/19 Unknown Rx /Codeine # 3 tab] Nitrofurantoin [place]/M-Cryst 100 mg PO Q12HR #14 capsule 01/26/19 Unknown Rx [Macrobid CAP] Ondansetron [Zofran Odt] 4 mg PO Q8HR PRN #20 tab.rapdis 01/26/19 Unknown Rx Butalb/Acetamin/Caff 50-325-40 1 tab PO Q6HR PRN #24 tab 02/10/19 Unknown Rx [Fioricet] Meclizine [Antivert] 25 mg PO TID PRN #30 tablet 02/10/19 Unknown Rx Acetaminophen [Acetaminophen TAB] 1,000 mg PO Q6HR PRN #24 tablet 03/20/19 Unknown Rx Diclofenac EC [Voltaren] 25 mg PO QID PRN #40 tablet 04/05/19 Unknown Rx Menthol/Camphor [[place] 1 applicatio TP QID PRN #1 tube 04/05/19 Unknown Rx Ointment] methOCARBAMOL [Robaxin TAB] 750 mg PO Q8H PRN #30 tablet 04/05/19 Unknown Rx predniSONE [Deltasone] 40 mg PO QDAY 5 Days #10 tab 04/05/19 Unknown Rx Allergies Allergy/AdvReac Type Severity Reaction Status Date / Time sulfamethoxazole Allergy Severe Hives Verified 04/03/16 08:54 [From Bactrim] trimethoprim [From Bactrim] Allergy Severe Hives Verified 04/03/16 08:54 iodine Allergy Hives Verified 09/04/16 09:31 tramadol AdvReac Severe Headache Verified 04/07/16 09:57 aspirin AdvReac Unknown Verified 01/26/19 04:24 contrast Allergy Severe Rash Uncoded 04/03/16 08:54 CLAM CHOWDER AdvReac Severe Swelling Uncoded 04/03/16 08:54 ED Review of Systems ROS: Stated complaint: R HAND/ARM/SHOULDER/BACK PAIN Other details as noted in HPI Constitutional: denies: chills, fever Eyes: denies: eye pain, eye discharge, vision change ENT: denies: ear pain, throat pain Respiratory: denies: cough, shortness of breath, wheezing Cardiovascular: denies: chest pain, palpitations Endocrine: no symptoms reported Gastrointestinal: denies: abdominal pain, nausea, diarrhea Genitourinary: denies: urgency, dysuria, discharge Musculoskeletal: arthralgia, myalgia. denies: back pain, joint swelling Skin: denies: rash, lesions Neurological: numbness (right arm ). denies: headache, weakness, paresthesias, confusion, abnormal gait, vertigo Psychiatric: denies: anxiety, depression Hematological/Lymphatic: denies: easy bleeding, easy bruising ED Past Medical Hx - Past Medical History Previous Medical History?: Yes Hx Hypertension: Yes (notpresently on meds) Hx Diabetes: Yes (gestational) Hx GERD: Yes Hx Psychiatric Treatment: Yes (depression, ANXIETY, SI/SA) Additional medical history: Peripheral neuropathy, OBESITY. hx suicidal attemp ts/OD. pt states hx MS-no PMD or neurologist. - Surgical History Past Surgical History?: Yes Additional Surgical History: tonsillectomy. partial hysterectomy. x 3 - Social History Smoking Status: Current Every Day Smoker Substance Use Type: None - Medications Home Medications: Home Medications Medication Instructions Recorded Confirmed Last Taken Type Promethazine /Codeine 5 ml PO Q6H PRN #50 ml 12/04/14 04/10/16 04/09/16 12:00 Rx [Phenergan/Codeine 6.25-10 mg/5 ml] Dicyclomine [Bentyl] 10 mg PO PRN PRN 04/07/16 04/10/16 04/08/16 08:00 History HYDROcodone/ACETAMINOPHEN [[place] 09/04/16 Unknown History 7.5-325 mg TAB] Meloxicam [Mobic] 7.5 mg PO QDAY #7 tablet 09/04/16 Unknown Rx Acetaminophen/Codeine [Tylenol 1 tab PO Q6H PRN #12 tab 01/26/19 Unknown Rx /Codeine # 3 tab] Nitrofurantoin [place]/M-Cryst 100 mg PO Q12HR #14 capsule 01/26/19 Unknown Rx [Macrobid CAP] Ondansetron [Zofran Odt] 4 mg PO Q8HR PRN #20 tab.rapdis 01/26/19 Unknown Rx Butalb/Acetamin/Caff 50-325-40 1 tab PO Q6HR PRN #24 tab 02/10/19 Unknown Rx [Fioricet] Meclizine [Antivert] 25 mg PO TID PRN #30 tablet 02/10/19 Unknown Rx Acetaminophen [Acetaminophen TAB] 1,000 mg PO Q6HR PRN #24 tablet 03/20/19 Unknown Rx Diclofenac EC [Voltaren] 25 mg PO QID PRN #40 tablet 04/05/19 Unknown Rx Menthol/Camphor [[place] 1 applicatio TP QID PRN #1 tube 04/05/19 Unknown Rx Ointment] methOCARBAMOL [Robaxin TAB] 750 mg PO Q8H PRN #30 tablet 04/05/19 Unknown Rx predniSONE [Deltasone] 40 mg PO QDAY 5 Days #10 tab 04/05/19 Unknown Rx ED Physical Exam - General Limitations: No Limitations General appearance: alert, in no apparent distress - Head Head exam: Present: atraumatic, normocephalic - Eye Eye exam: Present: normal appearance, PERRL, EOMI Pupils: Present: normal accommodation - ENT ENT exam: Present: normal exam, normal orophraynx, mucous membranes moist. Absent: TM's normal bilaterally, normal external ear exam - Neck Neck exam: Present: normal inspection, tenderness (right posterior neck please ), full ROM. Absent: meningismus, lymphadenopathy, thyromegaly - Respiratory Respiratory exam: Present: normal lung sounds bilaterally, wheezes, rhonchi. Absent: respiratory distress - Cardiovascular Cardiovascular Exam: Present: regular rate, normal rhythm, normal heart sounds. Absent: systolic murmur, diastolic murmur, rubs, gallop - GI/Abdominal GI/Abdominal exam: Present: soft, normal bowel sounds. Absent: distended, tenderness, guarding, rebound, rigid, bruit, hernia - Rectal Rectal exam: Present: deferred - Extremities Exam Extremities exam: Present: normal inspection, full ROM, tenderness (right lateral forearm tenderness to carpal region, ), normal capillary refill. Absent: pedal edema, joint swelling, calf tenderness - Back Exam Back exam: Present: normal inspection, full ROM, tenderness, CVA tenderness (R), CVA tenderness (L). Absent: muscle spasm, paraspinal tenderness, vertebral tenderness - Neurological Exam Neurological exam: Present: alert, oriented X3, CN II-XII intact, normal gait, motor sensory deficit, reflexes normal - Expanded Neurological Exam Expanded Patient oriented to: Present: person, place, time Speech: Present: fluid speech Cranial nerves: EOM's Intact: Normal, Gag Reflex: Normal, Tongue Deviation: Normal, Nystagmus: Normal, Facial Sensation: Normal Cerebellar function: Finger to Nose: Normal, Heel to Swenson: Normal, Romberg: Normal Upper motor neuron: Buck Neglect: Normal, Pronator Drift: Normal, Babinski Sign: Normal, Sensory Extinction: Normal Sensory exam: Upper Extremity Light Touch: Normal, Upper Extremity Pin Prick: Normal, Upper Extremity Temperature: Normal, UE 2 Point Discrimination: Normal Motor strength exam: RUE: 3, LUE: 3, RLE: 3, LLE: 3 DTR: bicep (R): 3+, bicep (L): 3+, knee (R): 3+, knee (L): 3+, ankle (R): 3+, ankle (L): 3+ Best Eye Response ([place]): (4) open spontaneously Best Motor Response ([place]): (6) obeys commands Best Verbal Response ([place]): (5) oriented (fast, strong) [place] Total: 15 - Psychiatric Psychiatric exam: Present: normal affect, normal mood - Skin Skin exam: Present: warm, dry, intact, normal color. Absent: rash ED Course Vital Signs 04/05/19 04/05/19 03:51 06:17 Temperature 98.6 F Pulse Rate 113 H Respiratory 18 18 Rate Blood Pressure 147/105 O2 Sat by Pulse 100 Oximetry ED Medical Decision Making - Radiology Data Radiology results: report reviewed, image reviewed Ordering Physician: SO AMBROSE NP Date of Service: 04/05/19 Procedure(s): XR spine cervical 2-3V Accession Number(s): [id number] cc: SO AMBROSE NP Fluoro Time In Minutes: PROCEDURE: XR SPINE CERVICAL 2-3V TECHNIQUE: AP, lateral, and open-mouth odontoid views were obtained of the cervical spine. HISTORY: Neck Pain COMPARISONS: None FINDINGS: There is mild to moderate narrowing of the C5-C6 disc with minimal endplate s purring. There is minimal narrowing the C6-C7 disc. The alignment appears normal. The prevertebral soft tissues and C1-C2 articulation appear intact. IMPRESSION: Degenerative arthritic changes C5-C6 and C6-C7 levels.. This document is electronically signed by Abdon Keith MD., April 05 2019 06:47:12 AM ET Transcribed By: RB Dictated By: ABDON KEITH MD Electronically Authenticated By: ABDON KEITH MD Signed Date/Time: 04/05/1949 DD/ TD/TT: 04/05/19642 - Medical Decision Making xray cervicle spine : degenerative disc disease, , plan dc to home with rx diclofenac, tiger balm, methocarbamol , prednisone follow up with ortho in 2 days return to ed if symptoms worsen pt verbalized agreement and understanding of same. vital signs improved , pain is 2/10 vice 9 /10 at this time pt for dc to home in stable condition Critical care attestation.: If time is entered above; I have spent that time in minutes in the direct care of this critically ill patient, excluding procedure time. ED Disposition Clinical Impression: Cervical radiculopathy Neck muscle strain Qualifiers: Encounter type: initial encounter Qualified Code(s): S16.1XXA - Strain of muscle, fascia and tendon at neck level, initial encounter Disposition: DC-01 TO HOME OR SELFCARE Is pt being admited?: No Does the pt Need Aspirin: No Condition: Stable Instructions: Muscle Strain (ED), Cervical Spine Strain (ED), Neck Exercises (GEN) Prescriptions: predniSONE [Deltasone] 40 mg PO QDAY 5 Days #10 tab methOCARBAMOL [Robaxin TAB] 750 mg PO Q8H PRN #30 tablet PRN Reason: Muscle Spasm Menthol/Camphor [[place] Ointment] 1 applicatio TP QID PRN #1 tube PRN Reason: Pain , Severe (7-10) Diclofenac EC [Voltaren] 25 mg PO QID PRN #40 tablet PRN Reason: pain Referrals: GENA SAWYER MD [Primary Care Provider] - 3-5 Days Forms: Work/School Release Form(ED) Time of Disposition: 07:26
--- NOTE | 2019-04-05 07:51 | Emergency Department Report ---
Blank Doc - Documentation Documentation: there was not a signature on the diclofenac prescription. nurse asked if I would reprint and sign. Ordered by my colleague Jostin Chirinos NP. Reprinted and signed prescription.
[2019-04-05 08:10] VITALS: BP 140/85
== END 2019-04-05 08:02 | disposition home or self-care (01) ==
LOC: ED 03:45
DX: S16.1XXA Strain of muscle, fascia and tendon at neck level, initial encounter (principal); M54.12 Radiculopathy, cervical region; M25.511 Pain in right shoulder; I10 Essential (primary) hypertension; K21.9 Gastro-esophageal reflux disease without esophagitis; F32.9 Major depressive disorder, single episode, unspecified; F41.9 Anxiety disorder, unspecified; E11.40 Type 2 diabetes mellitus with diabetic neuropathy, unspecified; F17.200 Nicotine dependence, unspecified, uncomplicated; Z90.710 Acquired absence of both cervix and uterus; Z79.899 Other long term (current) drug therapy; Z88.2 Allergy status to sulfonamides; Z88.8 Allergy status to other drugs, medicaments and biological substances; Z88.6 Allergy status to analgesic agent; Z88.1 Allergy status to other antibiotic agents; Z91.041 Radiographic dye allergy status
CPT/HCPCS: 72040; 96372; 99282; J1100

== ENCOUNTER 2020-03-21 21:27 | Emergency (ER) | payer MEDICAID ==
[2020-03-21 22:56] VITALS: BP 153/97
== END 2020-03-21 23:29 | disposition home or self-care (01) ==
LOC: ED 21:27
DX: S63.501A Unspecified sprain of right wrist, initial encounter (principal); S60.211A Contusion of right wrist, initial encounter; I10 Essential (primary) hypertension; E11.9 Type 2 diabetes mellitus without complications; K21.9 Gastro-esophageal reflux disease without esophagitis; F32.9 Major depressive disorder, single episode, unspecified; F17.200 Nicotine dependence, unspecified, uncomplicated; Z90.89 Acquired absence of other organs; Z90.710 Acquired absence of both cervix and uterus; Z79.1 Long term (current) use of non-steroidal anti-inflammatories (NSAID); Z79.899 Other long term (current) drug therapy; Z88.8 Allergy status to other drugs, medicaments and biological substances; W22.01XA Walked into wall, initial encounter; Y93.89 Activity, other specified; Y92.89 Other specified places as the place of occurrence of the external cause; Y99.8 Other external cause status
CPT/HCPCS: Q0162

== ENCOUNTER 2020-09-05 14:31 | Emergency (ER) | payer MEDICAID ==
--- NOTE | 2020-09-05 15:31 | Event Note ---
ED Screening Note ED Screening Note: right sided pain all over hx of MS, HTN, anxiety, migraines states she had a fall a month and a half ago and went to her PCP and was seen at that time and had trigger point injections states she followed back up with her PCP on 08/28/2020 states she did instacart 3 days ago and has been having pain since then was supposed to follow [facility] with a neurologist [facility] and did not follow up due to transportation issues states she went to Dr. Hager, orthopedic but did not follow back up This initial assessment/diagnostic orders/clinical plan/treatment(s) is/are subject to change based on patients health status, clinical progression and re- assessment by fellow clinical providers in the ED. Further treatment and workup at subsequent clinical providers discretion. Patient/guardian urged not to elope from the ED as their condition may be serious if not clinically assessed and managed. Initial orders include: labs
[2020-09-05 16:02] LABS: Basophils # (Auto) 0.1 K/mm3 (0.0-0.1); Basophils % (Auto) 0.9 % (0.0-1.8); Eosinophils # (Auto) 0.1 K/mm3 (0.0-0.4); Eosinophils % (Auto) 0.6 % (0.0-4.3); Hematocrit 39.5 % (30.3-42.9); Hemoglobin 13.3 gm/dl (10.1-14.3); Lymphocytes % (Auto) 25.3 % (13.4-35.0); Mean Corpuscular HGB Conc 34 % (30-34); Mean Corpuscular Volume 95 fl (79-97); Monocytes % (Auto) 7.9 % (0.0-7.3); Platelet Count 279 K/mm3 (140-440); Red Blood Count 4.17 M/mm3 (3.65-5.03)
[2020-09-05 16:24] LABS: Alanine Aminotransferase 6 units/L (7-56); Albumin 3.8 g/dL (3.9-5); BUN/Creatinine Ratio 9; Blood Urea Nitrogen 6 mg/dL (7-17); Calcium 8.9 mg/dL (8.4-10.2); Hemolysis Index 6
[2020-09-05] MEDS ORDERED: dexAMETHasone 20 MG/5 ML VIAL IM ONE (16:45)
[2020-09-05] MEDS ORDERED: oxyCODONE /ACETAMINOPHEN 5-325MG TAB PO ONE (16:45)
[2020-09-05] MEDS ORDERED: KETOROLAC 30 MG/1 ML INJ IM ONE (16:45)
--- NOTE | 2020-09-05 16:51 | Emergency Department Report ---
ED General Adult HPI - General Chief complaint: Fall Stated complaint: FALL/BODY PAIN Time Seen by Provider: 09/05/20 15:27 Source: patient Mode of arrival: Ambulatory Limitations: Physical Limitation - History of Present Illness Initial comments: 40-year-old -Qat[place] female patient presents with complaints of generalized body aches and right elbow pain x6 weeks. Patient states pain began after she fell. Patient states she did follow-up with orthopedics, Dr. Hager and reports that she was supposed to have an elbow x-ray performed, however she lost her order. She denies any numbness/tingling/weakness in her right arm. She states she also believes she is having an MS flare and is having numbness in her legs bilaterally. She denies any back pain or back injuries, loss of bladder/bowel control, or saddle paresthesias. - Related Data Home Medications Medication Instructions Recorded Confirmed Last Taken DULoxetine [Cymbalta] 30 mg PO DAILY 05/06/20 05/13/20 05/11/20 HYDROcodone/ACETAMINOPHEN 1 each PO Q6H PRN 05/06/20 05/13/20 05/11/20 [Verdrocet 2.5-325 mg TAB] Zolpidem [Ambien] 5 mg PO QHS PRN 05/06/20 05/13/20 05/12/20 amLODIPine [Norvasc] 5 mg PO DAILY 05/06/20 05/13/20 05/12/20 Previous Rx's Medication Instructions Recorded Last Taken Type Oxycodone HCl/Acetaminophen 1 each PO Q6HR PRN #30 tablet 05/13/20 Unknown Rx [Percocet 7.5/325 mg] Prednisone [predniSONE 10 mg 10 mg PO .TAPER #1 tab.ds.pk 09/05/20 Unknown Rx (6-Day Pack, 21 Tabs)] Allergies Allergy/AdvReac Type Severity Reaction Status Date / Time sulfamethoxazole Allergy Severe Hives Verified 05/06/20 11:50 [From Bactrim] trimethoprim [From Bactrim] Allergy Severe Hives Verified 05/06/20 11:50 gabapentin Allergy Seizure Verified 05/06/20 11:50 iodine Allergy Hives Verified 05/06/20 11:50 tramadol AdvReac Severe Headache Verified 05/06/20 11:50 aspirin AdvReac GI UPSET Verified 05/06/20 11:50 contrast Allergy Severe Rash Uncoded 05/06/20 11:50 MIKAEL MELENDEZDER AdvReac Severe Swelling Uncoded 05/06/20 11:50 ED Review of Systems ROS: Stated complaint: FALL/BODY PAIN Other details as noted in HPI Constitutional: denies: chills, diaphoresis, fever, malaise, weakness Eyes: denies: vision change Respiratory: denies: cough, shortness of breath Cardiovascular: denies: chest pain Gastrointestinal: denies: abdominal pain, melena, hematochezia Genitourinary: denies: urgency, dysuria, hematuria Musculoskeletal: arthralgia. denies: joint swelling Skin: denies: rash, lesions, change in color Neurological: paresthesias. denies: headache, abnormal gait ED Past Medical Hx - Past Medical History Previous Medical History?: Yes Hx Hypertension: Yes (will give amlodipine this morning) Hx Heart Attack/AMI: No Hx Diabetes: Yes (RECENT DX; 3 MOS) Hx GERD: Yes Hx Liver Disease: No Hx Renal Disease: No Hx Arthritis: Yes Hx Headaches / Migraines: Yes (MIGRAINES) Hx Seizures: Yes (last seizure 2016; no meds) Hx Psychiatric Treatment: Yes (depression, ANXIETY, SI/SA) Hx HIV: No Additional medical history: Peripheral neuropathy, OBESITY. hx suicidal attempts/OD. pt states hx MS-no PMD or neurologist. Bone Disease - Surgical History Past Surgical History?: Yes Additional Surgical History: tonsillectomy, HYSTERECTOMY PARTIAL. x 3 - Social History Smoking Status: Current Every Day Smoker Substance Use Type: Alcohol - Medications Home Medications: Home Medications Medication Instructions Recorded Confirmed Last Taken Type DULoxetine [Cymbalta] 30 mg PO DAILY 05/06/20 05/13/20 05/11/20 History HYDROcodone/ACETAMINOPHEN 1 each PO Q6H PRN 05/06/20 05/13/20 05/11/20 History [Verdrocet 2.5-325 mg TAB] Zolpidem [Ambien] 5 mg PO QHS PRN 05/06/20 05/13/20 05/12/20 History amLODIPine [Norvasc] 5 mg PO DAILY 05/06/20 05/13/20 05/12/20 History Oxycodone HCl/Acetaminophen 1 each PO Q6HR PRN #30 tablet 05/13/20 Unknown Rx [Percocet 7.5/325 mg] Prednisone [predniSONE 10 mg 10 mg PO .TAPER #1 tab.ds.pk 09/05/20 Unknown Rx (6-Day Pack, 21 Tabs)] ED Physical Exam - General Limitations: Physical Limitation General appearance: alert, in no apparent distress, obese - Head Head exam: Present: atraumatic, normocephalic - Eye Eye exam: Absent: scleral icterus - Neck Neck exam: Present: tenderness (Right trapezius muscle tenderness to palpation without vertebral tenderness or obvious deformity no), full ROM - Respiratory Respiratory exam: Present: normal lung sounds bilaterally. Absent: respiratory distress - Cardiovascular Cardiovascular Exam: Present: regular rate, normal rhythm - GI/Abdominal GI/Abdominal exam: Present: soft. Absent: distended, tenderness - Extremities Exam Extremities exam: Present: full ROM, other (Tenderness to palpation of the right elbow noted without obvious deformity or skin changes or) - Back Exam Back exam: Present: full ROM. Absent: vertebral tenderness - Neurological Exam Neurological exam: Present: alert, oriented X3, normal gait - Psychiatric Psychiatric exam: Present: normal affect, normal mood - Skin Skin exam: Present: warm, dry, intact, normal color. Absent: rash ED Course Vital Signs 09/05/20 15:15 Temperature 99 F Pulse Rate 98 H Respiratory 18 Rate Blood Pressure 155/113 O2 Sat by Pulse 100 Oximetry ED Medical Decision Making - Lab Data Result diagrams: 09/05/20 15:48 09/05/20 15:48 Lab Results 09/05/20 09/05/20 09/05/20 Range/Units 15:48 15:48 15:48 WBC 12.1 H (4.5-11.0) K/mm3 RBC 4.17 (3.65-5.03) M/mm3 Hgb 13.3 (10.1-14.3) gm/dl Hct 39.5 (30.3-42.9) % MCV 95 (79-97) fl MCH 32 (28-32) pg MCHC 34 (30-34) % RDW 14.0 (13.2-15.2) % Plt Count 279 (140-440) K/mm3 Lymph % (Auto) 25.3 (13.4-35.0) % [place] % (Auto) 7.9 H (0.0-7.3) % Eos % (Auto) 0.6 (0.0-4.3) % Baso % (Auto) 0.9 (0.0-1.8) % Lymph # (Auto) 3.0 (1.2-5.4) K/mm3 [place] # (Auto) 1.0 H (0.0-0.8) K/mm3 Eos # (Auto) 0.1 (0.0-0.4) K/mm3 Baso # (Auto) 0.1 (0.0-0.1) K/mm3 Seg Neutrophils % 65.3 (40.0-70.0) % Seg Neutrophils # 7.9 H (1.8-7.7) K/mm3 Sodium 136 L (137-145) mmol/L Potassium 3.7 (3.6-5.0) mmol/L Chloride 101.5 (98-107) mmol/L Carbon Dioxide 26 (22-30) mmol/L Anion Gap 12 mmol/L BUN 6 L (7-17) mg/dL Creatinine 0.7 (0.6-1.2) mg/dL Estimated GFR > 60 ml/min BUN/Creatinine Ratio 9 % Glucose 102 H (65-100) mg/dL Calcium 8.9 (8.4-10.2) mg/dL Total Bilirubin 0.40 (0.1-1.2) mg/dL AST 8 (5-40) units/L ALT 6 L (7-56) units/L Alkaline Phosphatase 100 (35-129) units/L C-Reactive Protein 3.10 H (0.00-1.30) mg/dL Total Protein 7.2 (6.3-8.2) g/dL Albumin 3.8 L (3.9-5) g/dL Albumin/Globulin Ratio 1.1 % HCG, Qual Negative (Negative) - Radiology Data Radiology results: report reviewed RIGHT ELBOW 3 VIEWS INDICATION / CLINICAL INFORMATION: Right elbow pain after fall 6 weeks ago. COMPARISON: None available. FINDINGS: BONES and JOINT(S): No acute fracture or subluxation. No significant arthritis. SOFT TISSUES: No significant abnormality. ADDITIONAL FINDINGS: None. IMPRESSION: 1. No acute findings. - Medical Decision Making 40-year-old -Q[place] female patient presents with complaints of generalized body aches and right elbow pain x6 weeks. Patient states pain began after she fell. Patient states she did follow-up with orthopedics, Dr. Hager and reports that she was supposed to have an elbow x-ray performed, however she lost her order. She denies any numbness/tingling/weakness in her right arm. She states she also believes she is having an MS flare and is having numbness in her legs bilaterally. She denies any back pain or back injuries, loss of bladder/bowel control, or saddle paresthesias. CBC and CMP are without acute abnormalities. CRP is mildly elevated at 3.6. Patient appears to be having an MS flare. X-ray of the elbow was negative for any bony abnormality. Recommend follow-up with primary care and continue to follow-up with Dr. Hager, orthopedics. Patient treated with Toradol and Decadron and will DC home with prednisone Dosepak. [facility] shows patient received 40 oxycodone on 08/27/2020. I do suspect some drug-seeking behavior. Strict return precautions were discussed in detail with patient who verbalized understanding. Critical care attestation.: If time is entered above; I have spent that time in minutes in the direct care of this critically ill patient, excluding procedure time. ED Disposition Clinical Impression: Right elbow pain, Generalized body aches Disposition: DC-01 TO HOME OR SELFCARE Is pt being admited?: No Condition: Stable Instructions: Joint Pain, Musculoskeletal Pain Prescriptions: Prednisone [predniSONE 10 mg (6-Day Pack, 21 Tabs)] 10 mg PO .TAPER #1 tab.ds.pk Referrals: PRIMARY CARE, [Primary Care Provider] - 3-5 Days
--- NOTE | 2020-09-05 17:34 | XRay Report ---
RIGHT ELBOW 3 VIEWS INDICATION / CLINICAL INFORMATION: Right elbow pain after fall 6 weeks ago. COMPARISON: None available. FINDINGS: BONES and JOINT(S): No acute fracture or subluxation. No significant arthritis. SOFT TISSUES: No significant abnormality. ADDITIONAL FINDINGS: None. IMPRESSION: 1. No acute findings. Signer Name: Chalo Hernández MD Signed: 09/05/2020 5:30 PM Workstation Name: [id number]
[2020-09-05 17:43] VITALS: BP 149/95
== END 2020-09-05 17:55 | disposition home or self-care (01) ==
LOC: ED 14:31
DX: M25.521 Pain in right elbow (principal); R20.2 Paresthesia of skin; I10 Essential (primary) hypertension; E11.9 Type 2 diabetes mellitus without complications; K21.9 Gastro-esophageal reflux disease without esophagitis; M19.91 Primary osteoarthritis, unspecified site; G43.909 Migraine, unspecified, not intractable, without status migrainosus; R56.9 Unspecified convulsions; F32.9 Major depressive disorder, single episode, unspecified; F17.200 Nicotine dependence, unspecified, uncomplicated; Z90.10 Acquired absence of unspecified breast and nipple; Z90.49 Acquired absence of other specified parts of digestive tract; Z79.899 Other long term (current) drug therapy; Z88.8 Allergy status to other drugs, medicaments and biological substances
CPT/HCPCS: 36415; 73080; 80053; 84703; 85025; 86140; 96372; 99284; J1100; J1885

== ENCOUNTER 2020-12-30 10:48 | Emergency (ER) | payer MEDICAID ==
--- NOTE | 2020-12-30 11:37 | Event Note ---
ED Screening Note Date of service: 12/30/20 Time: 11:34 ED Screening Note: Patient presents with complaints of cough and throat pain for 1 week, intermittent chest pain x3 years + Shortness of breath Chest pain is substernal This initial assessment/diagnostic orders/clinical plan/treatment(s) is/are subject to change based on patients health status, clinical progression and re- assessment by fellow clinical providers in the ED. Further treatment and workup at subsequent clinical providers discretion. Patient/guardian urged not to elope from the ED as their condition may be serious if not clinically assessed and managed. Initial orders include: Labs EKG Chest x-ray
[2020-12-30 12:35] LABS: Basophils # (Auto) 0.1 K/mm3 (0.0-0.1); Basophils % (Auto) 0.6 % (0.0-1.8); Eosinophils # (Auto) 0.1 K/mm3 (0.0-0.4); Eosinophils % (Auto) 0.5 % (0.0-4.3); Hematocrit 40.7 % (30.3-42.9); Hemoglobin 13.7 gm/dl (10.1-14.3); Lymphocytes # (Auto) 2.5 K/mm3 (1.2-5.4); Mean Corpuscular HGB Conc 34 % (30-34); Mean Corpuscular Volume 95 fl (79-97); Monocytes # (Auto) 0.5 K/mm3 (0.0-0.8); Monocytes % (Auto) 5.1 % (0.0-7.3); Platelet Count 295 K/mm3 (140-440); Red Blood Count 4.27 M/mm3 (3.65-5.03); Red Cell Distribution Width 14.7 % (13.2-15.2)
[2020-12-30 13:02] LABS: Alanine Aminotransferase 9 units/L (7-56); Blood Urea Nitrogen 7 mg/dL (7-17); Calcium 9.1 mg/dL (8.4-10.2); Hemolysis Index 7
[2020-12-30 13:19] LABS: BUN/Creatinine Ratio 10
--- NOTE | 2020-12-30 13:48 | Emergency Department Report ---
ED General Adult HPI - General Chief complaint: Nausea/Vomiting/Diarrhea Stated complaint: CHEST PAIN X 3 YEARS/COUGH/SORETHROAT Time Seen by Provider: 12/30/20 11:33 Source: patient Mode of arrival: Ambulatory Limitations: No Limitations - History of Present Illness Initial comments: 40-year-old obese -Senegalese female reports to the emergency room complaining of nausea vomiting sore throat and chest pain that she has had for 3 years. Patient is followed by Dr. Nona Paredes and last saw him on 12/27/2020 as she is on chronic pain contract with him. Patient has a past medical history of depression anxiety S BLACK, seizure disorder currently on no meds for that. Surgical she has had tonsillectomy hysterectomy partial. History of hypertensi on diabetes and arthritis. Her next appointment with her primary care doctor is for 1520. Patient also reports that she has pain in her right breast has been going on for for quite a while has told her primary care provider no recent mammograms. -: year(s) (3 chest pain), This morning (Sore throat nausea and vomiting) Location: chest Severity scale (0 -10): 6 Consistency: intermittent Improves with: none Worsens with: none Associated Symptoms: cough, nausea/vomiting. denies: diaphoresis, fever/chills, rash, shortness of breath - Related Data Home Medications Medication Instructions Recorded Confirmed Last Taken DULoxetine [Cymbalta] 30 mg PO DAILY 05/06/20 05/13/20 05/11/20 HYDROcodone/ACETAMINOPHEN 1 each PO Q6H PRN 05/06/20 05/13/20 05/11/20 [Verdrocet 2.5-325 mg TAB] Zolpidem [Ambien] 5 mg PO QHS PRN 05/06/20 05/13/20 05/12/20 amLODIPine [Norvasc] 5 mg PO DAILY 05/06/20 05/13/20 05/12/20 Previous Rx's Medication Instructions Recorded Last Taken Type Oxycodone HCl/Acetaminophen 1 each PO Q6HR PRN #30 tablet 05/13/20 Unknown Rx [Percocet 7.5/325 mg] Prednisone [predniSONE 10 mg 10 mg PO .TAPER #1 tab.ds.pk 09/05/20 Unknown Rx (6-Day Pack, 21 Tabs)] Allergies Allergy/AdvReac Type Severity Reaction Status Date / Time sulfamethoxazole Allergy Severe Hives Verified 12/30/20 10:50 [From Bactrim] trimethoprim [From Bactrim] Allergy Severe Hives Verified 12/30/20 10:50 gabapentin Allergy Seizure Verified 12/30/20 10:50 iodine Allergy Hives Verified 12/30/20 10:50 tramadol AdvReac Severe Headache Verified 12/30/20 10:50 aspirin AdvReac GI UPSET Verified 12/30/20 10:50 contrast Allergy Severe Rash Uncoded 05/06/20 11:50 CLAM CHOWDER AdvReac Severe Swelling Uncoded 05/06/20 11:50 ED Review of Systems ROS: Stated complaint: CHEST PAIN X 3 YEARS/COUGH/SORETHROAT Other details as noted in HPI Comment: All other systems reviewed and negative ED Past Medical Hx - Past Medical History Hx Hypertension: Yes Hx Heart Attack/AMI: No Hx Diabetes: Yes (RECENT DX; 3 MOS) Hx GERD: Yes Hx Liver Disease: No Hx Renal Disease: No Hx Arthritis: Yes Hx Headaches / Migraines: Yes (MIGRAINES) Hx Seizures: Yes (last seizure 2016; no meds) Hx Psychiatric Treatment: Yes (depression, ANXIETY, SI/SA) Hx HIV: No Additional medical history: Peripheral neuropathy, OBESITY. hx suicidal attempts/OD. pt states hx MS-no PMD or neurologist. Bone Disease - Surgical History Additional Surgical History: tonsillectomy, HYSTERECTOMY PARTIAL. x 3 - Social History Smoking Status: Smoker, Current Status Unknown Substance Use Type: None - Medications Home Medications: Home Medications Medication Instructions Recorded Confirmed Last Taken Type DULoxetine [Cymbalta] 30 mg PO DAILY 05/06/20 05/13/20 05/11/20 History HYDROcodone/ACETAMINOPHEN 1 each PO Q6H PRN 05/06/20 05/13/20 05/11/20 History [Verdrocet 2.5-325 mg TAB] Zolpidem [Ambien] 5 mg PO QHS PRN 05/06/20 05/13/20 05/12/20 History amLODIPine [Norvasc] 5 mg PO DAILY 05/06/20 05/13/20 05/12/20 History Oxycodone HCl/Acetaminophen 1 each PO Q6HR PRN #30 tablet 05/13/20 Unknown Rx [Percocet 7.5/325 mg] Prednisone [predniSONE 10 mg 10 mg PO .TAPER #1 tab.ds.pk 09/05/20 Unknown Rx (6-Day Pack, 21 Tabs)] ED Physical Exam - General Limitations: No Limitations General appearance: alert, in no apparent distress, obese - Head Head exam: Present: atraumatic, normocephalic - Eye Eye exam: Present: normal appearance - ENT ENT exam: Present: normal exam, TM's normal bilaterally - Neck Neck exam: Present: normal inspection, full ROM. Absent: lymphadenopathy - Respiratory Respiratory exam: Present: normal lung sounds bilaterally, chest wall tenderness (Right breast tenderness and midsternal tenderness no discharge from the nipple). Absent: respiratory distress, accessory muscle use - Cardiovascular Cardiovascular Exam: Present: regular rate, normal rhythm. Absent: systolic murmur, diastolic murmur, rubs, gallop - GI/Abdominal GI/Abdominal exam: Present: soft. Absent: distended, tenderness - Extremities Exam Extremities exam: Present: normal inspection, full ROM - Back Exam Back exam: Present: normal inspection, full ROM - Neurological Exam Neurological exam: Present: alert, oriented X3, normal gait - Psychiatric Psychiatric exam: Present: depressed - Skin Skin exam: Present: warm, dry, intact, normal color. Absent: rash ED Course Vital Signs 12/30/20 10:50 Temperature 99.1 F Pulse Rate 106 H Respiratory 20 Rate Blood Pressure 125/89 O2 Sat by Pulse 99 Oximetry ED Medical Decision Making - Lab Data Result diagrams: 12/30/20 12:12 12/30/20 12:12 - Radiology Data Radiology results: report reviewed [facility] [address] [place] [address] XRay Report Signed Patient: JAYNE DURAND MR#: [id number] : 1980 Acct:[id number] Age/Sex: 40 / F ADM Date: 12/30/20 Loc: ED Attending Dr: Ordering Physician: PARISH GREEN Date of Service: 12/30/20 Procedure(s): XR chest routine 2V Accession Number(s): [id number] cc: PARISH GREEN Fluoro Time In Minutes: CHEST 2 VIEWS INDICATION: chest pain, cough, SOB. COMPARISON: None FINDINGS: Support devices: None. Heart: Within normal limits. Lungs/pleura: No acute air space or interstitial disease. No pneumothorax. Additional findings: None. IMPRESSION: No acute findings. Signer Name: Xiang Gandhi Jr, MD Signed: 12/30/2020 2:02 PM Workstation Name: [id number] Transcribed By: TTR Dictated By: XIANG GANDHI JR, MD Electronically Authenticated By: XIANG GANDHI JR, MD Signed Date/Time: 12/30/201401 DD/ 00 TD/TT: - Medical Decision Making 40-year-old obese -Seneg[place] female reports to the emergency room complaining of nausea vomiting sore throat and chest pain that she has had for 3 years. Patient is followed by Dr. Nona Paredes and last saw him on 12/27/2020 as she is on chronic pain contract with him. Patient has a past medical history of depression anxiety S BLACK, seizure disorder currently on no meds for that. Surgical she has had tonsillectomy hysterectomy partial. History of hypertension diabetes and arthritis. Her next appointment with her primary care doctor is for 1520. Patient also reports that she has pain in her right breast has been going on for for quite a while has told her primary care provider no recent mammograms. Review of patient's chart shows that she had a colonoscopy April 01, 2016, normal CT of abdomen and pelvis on 01/26/2019. She seen her primary care provider on 12/27/2020. She has been treated for depression anxiety. She is being treated for chronic pain with [place] followed by Dr. Monae. Discussed with patient that if she is having right breast pain that she needs to follow-up with a breast specialist I will refer her to Dr. Clarke. I discussed with patient that she is having this intermittent chest pain for 3 years that she needs to follow-up with cardiology. Also discussed with patient it sounds like she has allergic rh initis with the postnasal drip and cough. Discussed with her that she needs to take her Claritin daily. Critical care attestation.: If time is entered above; I have spent that time in minutes in the direct care of this critically ill patient, excluding procedure time. ED Disposition Clinical Impression: Chronic chest pain, Allergic rhinitis due to allergen, Breast pain, right Disposition: DC-01 TO HOME OR SELFCARE Is pt being admited?: No Does the pt Need Aspirin: No Condition: Stable Instructions: Nonspecific Chest Pain, Adult, Allergic Rhinitis, Adult, Allergic Rhinitis, Adult, [id number], Breast Tenderness Additional Instructions: Labs are all stable no abnormalities. Chest x-ray is normal with no abnormalities. I recommend to continue with your Claritin follow-up with the breast specialist as well as follow-up with a shoe fitter. I have listed their information below for your convenience. Referrals: PRIMARY CAREMD [Primary Care Provider] - 3-5 Days ERICA CONNER MD [Staff Physician] - 3-5 Days KAREN CLARKE MD [Staff Physician] - 3-5 Days Forms: Work/School Release Form(ED)
--- NOTE | 2020-12-30 14:06 | XRay Report ---
CHEST 2 VIEWS INDICATION: chest pain, cough, SOB. COMPARISON: None FINDINGS: Support devices: None. Heart: Within normal limits. Lungs/pleura: No acute air space or interstitial disease. No pneumothorax. Additional findings: None. IMPRESSION: No acute findings. Signer Name: Xiang Gandhi Jr, MD Signed: 12/30/2020 2:02 PM Workstation Name: [id number]
[2020-12-30 14:41] VITALS: BP 154/89
--- NOTE | 2020-12-31 09:48 | Electrocardiograph Report ---
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
== END 2020-12-30 14:41 | disposition home or self-care (01) ==
LOC: ED 10:48
DX: N64.4 Mastodynia (principal); J30.89 Other allergic rhinitis; R07.89 Other chest pain; G89.29 Other chronic pain; I10 Essential (primary) hypertension; E11.9 Type 2 diabetes mellitus without complications; K21.9 Gastro-esophageal reflux disease without esophagitis; M19.91 Primary osteoarthritis, unspecified site; G43.909 Migraine, unspecified, not intractable, without status migrainosus; R56.9 Unspecified convulsions; F32.9 Major depressive disorder, single episode, unspecified; Z90.710 Acquired absence of both cervix and uterus; Z90.89 Acquired absence of other organs; Z98.890 Other specified postprocedural states; Z79.899 Other long term (current) drug therapy; Z88.8 Allergy status to other drugs, medicaments and biological substances
CPT/HCPCS: 36415; 71046; 80053; 82962; 84484; 84703; 85025; 93005

== ENCOUNTER 2021-04-22 13:52 | Emergency (ER) | payer MEDICAID ==
--- NOTE | 2021-04-22 16:27 | Emergency Department Report ---
ED General Adult HPI - General Chief complaint: Fall Stated complaint: CHEST PAIN KNEE PAIN Time Seen by Provider: 04/22/21 15:39 Source: patient Mode of arrival: Wheelchair Limitations: No Limitations - History of Present Illness Initial comments: 40-year-old obese -[place] female presents to the emergency room for right knee injury 6 weeks ago and was seen by her primary care and got physical therapy. Patient also states that she had injured her right hand and reports to the nurse that it was possibly dislocated elbow. Patient told me that she had a fracture of her right wrist and she was seen at [facility] and they placed a temporary splint but it got wet. Patient reports that she did not follow-up with orthopedics as no one takes her insurance.. Patient states that she has been treated for sciatica of her right leg. She states that she saw Dr. Alba her primary care provider on 03/28/2021 had her last physical therapy on 04/04/2021. Patient reports she is currently taking Bradgate 5/3 25 mg that is prescribed by Dr. Alba. Patient admits that she suffers from chronic pain. Patient reports that she has a past medical history of MS but does not have a neurologist. Patient suffers from depression anxiety seizure disorder peripheral neuropathy obesity OCD and suicide attempts. Onset/Timin -: week(s) Location: chest, lower extremity - Related Data Home Medications Medication Instructions Recorded Confirmed Last Taken DULoxetine [Cymbalta] 30 mg PO DAILY 05/06/20 05/13/20 05/11/20 HYDROcodone/ACETAMINOPHEN 1 each PO Q6H PRN 05/06/20 05/13/20 05/11/20 [Verdrocet 2.5-325 mg TAB] Zolpidem [Ambien] 5 mg PO QHS PRN 05/06/20 05/13/20 05/12/20 amLODIPine [Norvasc] 5 mg PO DAILY 05/06/20 05/13/20 05/12/20 Previous Rx's Medication Instructions Recorded Last Taken Type Oxycodone HCl/Acetaminophen 1 each PO Q6HR PRN #30 tablet 05/13/20 Unknown Rx [Percocet 7.5/325 mg] Prednisone [predniSONE 10 mg 10 mg PO .TAPER #1 tab.ds.pk 09/05/20 Unknown Rx (6-Day Pack, 21 Tabs)] Allergies Allergy/AdvReac Type Severity Reaction Status Date / Time sulfamethoxazole Allergy Severe Hives Verified 12/30/20 10:50 [From Bactrim] trimethoprim [From Bactrim] Allergy Severe Hives Verified 12/30/20 10:50 gabapentin Allergy Seizure Verified 12/30/20 10:50 iodine Allergy Hives Verified 12/30/20 10:50 tramadol AdvReac Severe Headache Verified 12/30/20 10:50 aspirin AdvReac GI UPSET Verified 12/30/20 10:50 contrast Allergy Severe Rash Uncoded 05/06/20 11:50 CLAM CHOWDER AdvReac Severe Swelling Uncoded 05/06/20 11:50 ED Review of Systems ROS: Stated complaint: CHEST PAIN KNEE PAIN Other details as noted in HPI Comment: All other systems reviewed and negative ED Past Medical Hx - Past Medical History Previous Medical History?: Yes Hx Hypertension: Yes Hx Heart Attack/AMI: No Hx Diabetes: Yes (RECENT DX; 3 MOS) Hx GERD: Yes Hx Liver Disease: No Hx Renal Disease: No Hx Arthritis: Yes Hx Headaches / Migraines: Yes (MIGRAINES) Hx Seizures: Yes (last seizure 2016; no meds) Hx Psychiatric Treatment: Yes (depression, ANXIETY, SI/SA) Hx HIV: No Additional medical history: Peripheral neuropathy, OBESITY. hx suicidal attempts/OD. pt states hx MS-no PMD or neurologist. Bone Disease - Surgical History Past Surgical History?: Yes Additional Surgical History: tonsillectomy, HYSTERECTOMY PARTIAL. x 3 - Social History Smoking Status: Smoker, Current Status Unknown Substance Use Type: None - Medications Home Medications: Home Medications Medication Instructions Recorded Confirmed Last Taken Type DULoxetine [Cymbalta] 30 mg PO DAILY 05/06/20 05/13/20 05/11/20 History HYDROcodone/ACETAMINOPHEN 1 each PO Q6H PRN 05/06/20 05/13/20 05/11/20 History [Verdrocet 2.5-325 mg TAB] Zolpidem [Ambien] 5 mg PO QHS PRN 05/06/20 05/13/20 05/12/20 History amLODIPine [Norvasc] 5 mg PO DAILY 05/06/20 05/13/20 05/12/20 History Oxycodone HCl/Acetaminophen 1 each PO Q6HR PRN #30 tablet 05/13/20 Unknown Rx [Percocet 7.5/325 mg] Prednisone [predniSONE 10 mg 10 mg PO .TAPER #1 tab.ds.pk 09/05/20 Unknown Rx (6-Day Pack, 21 Tabs)] ED Physical Exam - General Limitations: No Limitations General appearance: alert, in no apparent distress - Head Head exam: Present: atraumatic, normocephalic - Eye Eye exam: Present: normal appearance - ENT ENT exam: Present: normal exam, normal external ear exam - Neck Neck exam: Present: normal inspection, full ROM - Respiratory Respiratory exam: Present: normal lung sounds bilaterally. Absent: accessory muscle use - Cardiovascular Cardiovascular Exam: Present: regular rate - GI/Abdominal GI/Abdominal exam: Present: soft. Absent: distended - Extremities Exam Extremities exam: Present: normal inspection. Absent: tenderness, pedal edema, calf tenderness - Back Exam Back exam: Present: full ROM - Expanded Back Exam Expanded Back exam: Sciatic Notch Tenderness: Right - Neurological Exam Neurological exam: Present: alert, oriented X3, abnormal gait (Walk for a mile right foot) - Psychiatric Psychiatric exam: Present: normal affect, normal mood - Skin Skin exam: Present: warm, dry, intact, normal color. Absent: rash ED Course Vital Signs 04/22/21 14:14 Temperature 98.4 F Pulse Rate 95 H Respiratory 20 Rate Blood Pressure 148/97 O2 Sat by Pulse 100 Oximetry ED Medical Decision Making - Medical Decision Making 40-year-old obese -[place] female presents to the emergency room for right knee injury 6 weeks ago and was seen by her primary care and got physical therapy. Patient also states that she had injured her right hand and reports to the nurse that it was possibly dislocated elbow. Patient told me that she had a fracture of her right wrist and she was seen at [facility] and they placed a temporary splint but it got wet. Patient reports that she did not follow-up with orthopedics as no one takes her insurance.. Patient states that she has been treated for sciatica of her right leg. She states that she saw Dr. Alba her primary care provider on 03/28/2021 had her last physical therapy on 04/04/2021. Patient reports she is currently taking Bradgate 5/3 25 mg that is prescribed by Dr. Alba. Patient admits that she suffers from chronic pain. Patient reports that she has a past medical history of MS but does not have a neurologist. Patient suffers from depression anxiety seizure disorder peripheral neuropathy obesity OCD and suicide attempts. Discussed with patient that she is currently under pain management care with Dr. Rosendo lindsey and is in physical therapy. I discussed the patient she should follow- up with a neurologist. Also discussed the patient she should follow-up with a orthopedic provider. Discussed with patient to continue with Dr. Sanders and her chronic medications. Critical care attestation.: If time is entered above; I have spent that time in minutes in the direct care of this critically ill patient, excluding procedure time. ED Disposition Clinical Impression: Sciatica, Right knee pain Disposition: LEFT AGAINST MED ADVICE Is pt being admited?: No Does the pt Need Aspirin: No Condition: Undetermined Instructions: Sciatica Referrals: ABDON CARNEY MD [Staff Physician] - 3-5 Days GENA SAWYER MD [Referring] - 3-5 Days
== END 2021-04-22 15:39 | disposition left against medical advice (07) ==
LOC: ED 13:52
CPT/HCPCS: 99282

== ENCOUNTER 2022-05-17 15:07 | Emergency (ER) | payer MEDICAID ==
--- NOTE | 2022-05-17 16:17 | XRay Report ---
RIGHT HAND 3 VIEWS INDICATION: pain/injury. COMPARISON: None. IMPRESSION: No acute osseous abnormality is detected. There has been previous internal fixation of a scaphoid fracture with a metallic screw. There are mild degenerative changes at the wrist but no si gnificant joint pathology in the hand. There is an approximate 1.6 cm partially cystic lesion in the distal radial metaphysis of uncertain etiology. No aggressive features are appreciated. This appears to be a new finding since the right wrist exam dated 03/21/2020. Please correlate with the patient's hi story and consider further evaluation with MRI with and without contrast. RIGHT FOOT 3 VIEWS INDICATION: pain/injury. COMPARISON: None. IMPRESSION: No acute osseous abnormality or significant joint pathology is identified. Mild hallux v algus deformity is present. The soft tissues are unremarkable. Signer Name: Xiang Gandhi Jr, MD Signed: 05/17/2022 4:13 PM Workstation Name: [id number]
--- NOTE | 2022-05-17 16:23 | Emergency Department Report ---
ED Fall HPI - General Chief Complaint: Extremity Injury, Upper Stated Complaint: GLASS JAR FELL ON R HAND AND FOOT Time Seen by Provider: 05/17/22 16:20 Source: patient Mode of arrival: Ambulatory - History of Present Illness Initial Comments: 42 yo comes to ER p a glass jar fell on her foot at work today. No bleeding/abrasion/bruising. Denies other injury. Ambulatory to ER -: Sudden Loss of Consciousness: none Prolonged Down Time?: no Symptoms Prior to Fall: none - Related Data Home Medications Medication Instructions Recorded Confirmed Last Taken DULoxetine [Cymbalta] 30 mg PO DAILY 05/06/20 05/13/20 05/11/20 HYDROcodone/ACETAMINOPHEN 1 each PO Q6H PRN 05/06/20 05/13/20 05/11/20 [Verdrocet 2.5-325 mg TAB] Zolpidem [Ambien] 5 mg PO QHS PRN 05/06/20 05/13/20 05/12/20 amLODIPine [Norvasc] 5 mg PO DAILY 05/06/20 05/13/20 05/12/20 Previous Rx's Medication Instructions Recorded Last Taken Type Oxycodone HCl/Acetaminophen 1 each PO Q6HR PRN #30 tablet 05/13/20 Unknown Rx [Percocet 7.5/325 mg] Prednisone [predniSONE 10 mg 10 mg PO .TAPER #1 tab.ds.pk 09/05/20 Unknown Rx (6-Day Pack, 21 Tabs)] Allergies Allergy/AdvReac Type Severity Reaction Status Date / Time sulfamethoxazole Allergy Severe Hives Verified 05/17/22 15:19 [From Bactrim] trimethoprim [From Bactrim] Allergy Severe Hives Verified 05/17/22 15:19 gabapentin Allergy Seizure Verified 05/17/22 15:19 iodine Allergy Hives Verified 05/17/22 15:19 tramadol AdvReac Severe Headache Verified 05/17/22 15:19 aspirin AdvReac GI UPSET Verified 05/17/22 15:19 contrast Allergy Severe Rash Uncoded 05/17/22 15:19 CLAM CHOWDER AdvReac Severe Swelling Uncoded 05/17/22 15:19 ED Review of Systems ROS: Stated complaint: GLASS JAR FELL ON R HAND AND FOOT Other details as noted in HPI Comment: All other systems reviewed and negative ED Past Medical Hx - Past Medical History Previous Medical History?: Yes Hx Hypertension: Yes Hx Heart Attack/AMI: No Hx Diabetes: Yes (RECENT DX; 3 MOS) Hx GERD: Yes Hx Liver Disease: No Hx Renal Disease: No Hx Arthritis: Yes Hx Headaches / Migraines: Yes (MIGRAINES) Hx Seizures: Yes (last seizure 2016; no meds) Hx Psychiatric Treatment: Yes (depression, ANXIETY, SI/SA) Hx HIV: No Additional medical history: Peripheral neuropathy, OBESITY. hx suicidal attempts/OD. pt states hx MS-no PMD or neurologist. Bone Disease - Surgical History Past Surgical History?: Yes Additional Surgical History: tonsillectomy, HYSTERECTOMY PARTIAL. x 3 - Family History Family history: no significant - Social History Smoking Status: Never Smoker Substance Use Type: None - Medications Home Medications: Home Medications Medication Instructions Recorded Confirmed Last Taken Type DULoxetine [Cymbalta] 30 mg PO DAILY 05/06/20 05/13/20 05/11/20 History HYDROcodone/ACETAMINOPHEN 1 each PO Q6H PRN 05/06/20 05/13/20 05/11/20 History [Verdrocet 2.5-325 mg TAB] Zolpidem [Ambien] 5 mg PO QHS PRN 05/06/20 05/13/20 05/12/20 History amLODIPine [Norvasc] 5 mg PO DAILY 05/06/20 05/13/20 05/12/20 History Oxycodone HCl/Acetaminophen 1 each PO Q6HR PRN #30 tablet 05/13/20 Unknown Rx [Percocet 7.5/325 mg] Prednisone [predniSONE 10 mg 10 mg PO .TAPER #1 tab.ds.pk 09/05/20 Unknown Rx (6-Day Pack, 21 Tabs)] ED Physical Exam - General Limitations: No Limitations General appearance: alert, in no apparent distress - Head Head exam: Present: atraumatic, normocephalic - Eye Eye exam: Present: normal appearance - ENT ENT exam: Present: mucous membranes moist - Neck Neck exam: Present: normal inspection - Respiratory Respiratory exam: Present: normal lung sounds bilaterally. Absent: respiratory distress - Cardiovascular Cardiovascular Exam: Present: regular rate, normal rhythm. Absent: systolic murmur, diastolic murmur, rubs, gallop - GI/Abdominal GI/Abdominal exam: Present: soft, normal bowel sounds - Extremities Exam Extremities exam: Present: normal inspection - Back Exam Back exam: Present: normal inspection - Neurological Exam Neurological exam: Present: alert, oriented X3 - Psychiatric Psychiatric exam: Present: normal affect, normal mood - Skin Skin exam: Present: warm, dry, intact, normal color. Absent: rash ED Course Vital Signs 05/17/22 05/17/22 15:14 17:24 Temperature 98.6 F Pulse Rate 100 H 78 Respiratory 18 20 Rate Blood Pressure 138/84 131/69 [Left] O2 Sat by Pulse 97 100 Oximetry ED Medical Decision Making - Radiology Data Radiology results: report reviewed, image reviewed [facility] - Medical Decision Making Vital Signs 05/17/22 05/17/22 15:14 17:24 Temperature 98.6 F Pulse Rate 100 H 78 Respiratory 18 20 Rate Blood Pressure 138/84 131/69 [Left] O2 Sat by Pulse 97 100 Oximetry ambulatory neurovasc intact educated on RICE dc home with dc plan of care including diet, meds, activity and follow up. Pt verbalizes understanding of plan of care - Differential Diagnosis ro fx Critical care attestation.: If time is entered above; I have spent that time in minutes in the direct care of this critically ill patient, excluding procedure time. ED Disposition Clinical Impression: Contusion Qualifiers: Encounter type: initial encounter Contusion area: foot Disposition: HOME / SELF CARE / HOMELESS Is pt being admited?: No Does the pt Need Aspirin: No Condition: Stable Additional Instructions: ICE REST ELEVATE OVER THE COUNTER MOTRIN OR TYLENOL FOR PAIN FOLLOW UP WITH PCP IF PAIN PERSISTS Referrals: GIGI GUTHRIE MD [Staff Physician] - 3-5 Days Forms: Work/School Release Form(ED) Time of Disposition: 16:26
[2022-05-17 17:24] VITALS: BP 131/69
== END 2022-05-17 17:23 | disposition home or self-care (01) ==
LOC: ED 15:07
DX: S90.31XA Contusion of right foot, initial encounter (principal); S60.221A Contusion of right hand, initial encounter; I10 Essential (primary) hypertension; E11.9 Type 2 diabetes mellitus without complications; M19.90 Unspecified osteoarthritis, unspecified site; K21.9 Gastro-esophageal reflux disease without esophagitis; G43.909 Migraine, unspecified, not intractable, without status migrainosus; F41.9 Anxiety disorder, unspecified; F32.9 Major depressive disorder, single episode, unspecified; Z90.89 Acquired absence of other organs; Z90.710 Acquired absence of both cervix and uterus; Z98.890 Other specified postprocedural states; Z88.2 Allergy status to sulfonamides; Z88.8 Allergy status to other drugs, medicaments and biological substances; Z88.6 Allergy status to analgesic agent; Z79.899 Other long term (current) drug therapy; W18.39XA Other fall on same level, initial encounter; Y93.89 Activity, other specified; Y92.89 Other specified places as the place of occurrence of the external cause; Y99.8 Other external cause status
CPT/HCPCS: 99283